=== PATIENT | male | born 1960 | race Caucasian/White ===

== ENCOUNTER → 2019-12-28 08:35 | Outpatient (BNVA) | payer OTHER, SELFPAY | PROVIDERS: PCP Internal Medicine; Visit Provider Hospitalist | DX: Z76.89 Persons encountering health services in other specified circumstances (principal) ==

== ENCOUNTER → 2020-06-17 08:20 | Outpatient (BNVA) | payer OTHER, SELFPAY | PROVIDERS: PCP Internal Medicine; Visit Provider Urology ==

== ENCOUNTER 2020-06-17 09:15 | Outpatient (REF) | payer OTHER, SELFPAY ==
[2020-06-17 11:06] LABS: PSA,Total (Free>4and<10) 2.51 ng/mL (0.00-4.00)
== END 2020-06-17 09:16 | disposition home or self-care (01) ==
LOC: HO.10HDL 09:15
PROVIDERS: Visit Provider Urology
DX: Z12.5 Encounter for screening for malignant neoplasm of prostate (principal); C61 Malignant neoplasm of prostate; N40.1 Benign prostatic hyperplasia with lower urinary tract symptoms; N13.8 Other obstructive and reflux uropathy
CPT/HCPCS: 36415; 84153

== ENCOUNTER 2020-10-17 10:10 | Outpatient (REF) | payer OTHER, SELFPAY ==
[2020-10-17 14:28] LABS: PSA,Total (Free>4and<10) 3.31 ng/mL (0.00-4.00)
== END 2020-10-17 10:11 | disposition home or self-care (01) ==
LOC: HO.10HDL 10:10
PROVIDERS: Visit Provider Urology
DX: Z12.5 Encounter for screening for malignant neoplasm of prostate (principal); C61 Malignant neoplasm of prostate; N13.8 Other obstructive and reflux uropathy; N40.1 Benign prostatic hyperplasia with lower urinary tract symptoms
CPT/HCPCS: 36415; 84153

== ENCOUNTER → 2020-10-28 10:27 | Outpatient (BNVA) | payer OTHER, SELFPAY | PROVIDERS: Visit Provider Urology ==

== ENCOUNTER 2020-11-17 07:18 | Outpatient (REF) | payer OTHER, SELFPAY ==
[2020-11-17 07:42] VITALS: BMI 28.7
[2020-11-17 07:45] VITALS: BP 145/91; PULSE 61; RESP 16; TEMP 36.2; O2SAT 99
[2020-11-17 08:40] VITALS: BP 148/93; PULSE 63; RESP 16; O2SAT 97
--- NOTE | 2020-11-17 08:49 | W.PM.OPN ---
Operative Note Operative Note Date of Service: 11/17/20 Narrative: Preoperative diagnosis: prostate cancer Postoperative diagnosis: prostate cancer Procedure: 1. transrectal ultrasound measurement of prostate 2. transrectal ultrasound-guided pudendal nerve block 3. transrectal ultrasound-guided prostate biopsy 12 core Surgeon: Dr. Lisandro Arcos Anesthetic: Local Indications for procedure: Prostate Cancer Procedure: After informed consent was verified, the patient was brought into the procedure area and lay left-hand side down on the table. Patient identity confirmed. Perioperative antibiotics confirmed. Gel was placed per rectum Ultrasound probe was placed per rectum The prostate was measured in 3 dimensions Total volume equals 35 gm There were no cystic structures and no calcifications noted and the prostate was homogeneous in nature A ultrasound-guided pudendal nerve block was performed using 10 cc of 1% lidocaine. 8 cc was placed at the base and 2 cc of the apex. A 12 core biopsy was performed with 6 cores each side. Two cores were taken at the apex, mid and base. Cores were spaced between lateral and medial. He tolerated the procedure well. Was able to ambulate to bathroom after 5 minutes. Printed instructions regarding antibiotic use and common side effects such as low-grade temperature and bleeding were given.
== END 2020-11-17 07:19 | disposition home or self-care (01) ==
LOC: HO.MS 07:18
PROVIDERS: Visit Provider Urology
PROC: (CPT 55700; principal; 2020-11-17 08:00)
DX: C61 Malignant neoplasm of prostate (principal); R97.20 Elevated prostate specific antigen [PSA]
CPT/HCPCS: 55700; 76942; 88305; 88344

== ENCOUNTER → 2020-11-25 08:09 | Outpatient (BNVA) | payer OTHER, SELFPAY | PROVIDERS: PCP Internal Medicine; Visit Provider Urology ==

== ENCOUNTER → 2021-01-24 08:23 | Outpatient (BNVA) | payer OTHER, SELFPAY | PROVIDERS: PCP Internal Medicine; Visit Provider Hospitalist ==

== ENCOUNTER 2021-03-20 09:27 | Outpatient (REF) | payer OTHER, SELFPAY ==
[2021-03-20 11:17] LABS: Prostate Specific Antigen 3.07 ng/mL (<0.05-4.0)
== END 2021-03-20 09:28 | disposition home or self-care (01) ==
LOC: HO.10HDL 09:27
PROVIDERS: Visit Provider Urology
DX: Z12.5 Encounter for screening for malignant neoplasm of prostate (principal); C61 Malignant neoplasm of prostate
CPT/HCPCS: 36415; 84153

== ENCOUNTER → 2021-03-28 09:21 | Outpatient (BNVA) | payer OTHER, SELFPAY | PROVIDERS: PCP Internal Medicine; Visit Provider Urology ==

== ENCOUNTER 2021-07-19 08:13 | Outpatient (REF) | payer OTHER, SELFPAY ==
[2021-07-19 11:15] LABS: Prostate Specific Antigen 3.91 ng/mL (<0.05-4.0)
== END 2021-07-19 08:14 | disposition home or self-care (01) ==
LOC: HO.10HDL 08:13
PROVIDERS: Visit Provider Urology
DX: N40.1 Benign prostatic hyperplasia with lower urinary tract symptoms (principal); N13.8 Other obstructive and reflux uropathy; Z12.5 Encounter for screening for malignant neoplasm of prostate
CPT/HCPCS: 36415; 84153

== ENCOUNTER 2022-03-28 09:25 | Outpatient (REF) | payer OTHER, SELFPAY ==
[2022-03-28 15:56] LABS: Prostate Specific Antigen 4.28 ng/mL (<0.05-4.0)
== END 2022-03-28 09:26 | disposition home or self-care (01) ==
LOC: HO.10HDL 09:25
PROVIDERS: Visit Provider Urology
DX: C61 Malignant neoplasm of prostate (principal)
CPT/HCPCS: 36415; 84153

== ENCOUNTER → 2022-04-05 09:25 | Outpatient (BNVA) | payer OTHER, SELFPAY | PROVIDERS: PCP Internal Medicine; Visit Provider Urology | DX: Z13.89 Encounter for screening for other disorder (principal) ==

== ENCOUNTER → 2022-05-08 09:38 | Outpatient (BNVA) | payer OTHER, SELFPAY | PROVIDERS: PCP Internal Medicine; Visit Provider Urology | DX: C61 Malignant neoplasm of prostate (principal); E11.69 Type 2 diabetes mellitus with other specified complication; N52.1 Erectile dysfunction due to diseases classified elsewhere; N48.1 Balanitis; Z79.84 Long term (current) use of oral hypoglycemic drugs; Z79.899 Other long term (current) drug therapy | CPT/HCPCS: 52000 ==

== ENCOUNTER 2022-09-18 09:04 | Outpatient (AMB) | payer OTHER, SELFPAY ==
--- NOTE | 2022-09-18 09:04 | MHC.OFFVIS ---
Intake Intake Visit Reasons: 4m/MRI(set) Intake Note: Patient is present for Follow Up MRI Urology Med: Finasteride, Sildenafil, Tadalafil Antibiotic Allergy:None Blood Thinner: None [facility]acy: [facility] Allergies No Known Allergies Allergy (Verified 09/18/22 09:06) Medication List - Last Reconciled 09/18/22 by Lisandro Arcos MD clotrimazole-betamethasone 1-0.05 % 1 appl topical BID 4 weeks empagliflozin (Jardiance) 10 mg PO finasteride 5 mg PO DAILY 90 days flu vacc [id number] 6mos up(PF) mL IM ONCE lisinopril 10 mg PO DAILY lisinopril 20 mg PO DAILY metformin ER 500 mg PO DAILY semaglutide (Rybelsus) 7 mg PO BEDTIME sildenafil 100 mg PO DAILY PRN 30 days tadalafil 10 mg PO DAILY 90 days HPI HPI Comments History of Present Illness Details Andrea PARKER is a very pleasant male. He is a patient of Dr Samano. He is seen for the following urologic conditions. - prostate cancer - erectile dysfunction secondary to diabetes Discussed MRI Lesion in prostate consistent with area of prior positive biopsy Repeat PSA 4 months Will consider repeat biopsy at that point Has had increasing urinary frequency likely secondary to diabetes treatment Balanitis 04/12 betamethasone Erectile dysfunction secondary to diabetes Daily Cialis 10mg Prostate cancer: Low risk November 2018, October 2020 Prostate cancer was diagnosed Dr Arcos 12/06. Diagnosis was reached by needle biopsy, for elevated PSA, PSA at diagnosis 6.4, , size at TRUS 40 cc. PSA 03/10 3.1, 04/12 4.3 08/10 MRI - 20 g prostate, left apex lateral 1.5 cm, PI-RADS 5 Biopsy 12/06 - low-grade low volume grade group 1 Left base lateral , 3+3 = 6 40% Left mid lateral - , 3+3 = 6 20% Left apex lateral - , 3+3 = 6 10% Right mid lateral , 3+3 = 6 5% 4 cores from 12 Biopsy October 2020 low-grade low volume grade group 1 Histologic type: Adenocarcinoma Histologic grade: [place] score:3+3=6 Tumor quantitation:? Number cores positive:5 Total number of cores:12 - left base, left mid % of tissue involved: Approximately 5-10% - - no core greater than 50% Periprostatic fat inv.: Not identified Seminal vesicle inv.: Not identified, Perineural inv.: Present, LVI: Not identified TNM Classification of Malignant Tumours (TNM) T1c. The D'Yanni (NCCN) risk category is Low Risk (PSA< 10, Gl < 7, T1c) - Group 1. Recent labs included 04/09 PSA 3.4 08/07 3.1, 10/08 3.3, 08/09 3.9, 04/12 4.3 PFSH Medical History Prostate cancer Pulmonary nodule Tobacco dependence Family History Other HTN (hypertension) Social History Patient Tobacco Use Status: Current everyday Tobacco user Tobacco use type: Cigarette Cigarette Packs Per Day: 1 Cigarettes Per Day: 20.0 Years Smoked: 15 years Review of Systems Const Denies chills and Denies fever(s) Card Reports no additional complaints and Denies syncope Resp Denies cough GI Denies abdominal pain and Denies heartburn Reports as per HPI and Denies change in libido Neuro Denies syncope Psych Denies change in libido Endo Denies change in libido Physical Exam Const General: cooperative, healthy appearing, comfortable and no acute distress Orientation/consciousness: patient oriented x3 HEENT Face and sinus: Yes normal facial exam Mouth: moist mucous membranes Neck Neck: Yes normal visual inspection, Yes full ROM and Yes trachea midline Chest Chest palpation & inspection: normal inspection of the chest Resp Effort & Inspection: normal respiratory effort, able to speak in complete sentences and no respiratory distress GI Inspection: Yes normal to inspection Back/Spine/Pelvis Cervical Spine: normal cervical lordosis Thoracic/Lumbar Spine: thoracic and lumbar spine normal to inspection Skin General skin exam: no rashes or lesions noted Neuro General: patient oriented x3, gait normal, tone normal and moves all extremities Extrem General: Yes normal to inspection and Yes capillary refill normal Assessment & Plan Assessment & Plan (1) Erectile dysfunction associated with type 2 diabetes mellitus: Code(s): E11.69 - Type 2 diabetes mellitus with other specified complication; N52.1 - Erectile dysfunction due to diseases classified elsewhere (2) Prostate cancer: Comment: Low-grade low volume last biopsy 2020 Code(s): C61 - Malignant neoplasm of prostate Plan Four month follow-up Orders: Orders Prostate Specific Antigen 4 Months C61 - Malignant neoplasm of prostate Patient Instructions: Imaging studies, laboratory and physical exam results were discussed and reviewed in detail. No major barriers to patient understanding were identified. An opportunity to ask questions regarding the treatment plan was provided. All questions were answered. The patient expressed understanding and agreement with the above treatment plan. The patient is aware they should contact our office by phone for worsening of their current condition or the appearance of new urologic symptoms. Compliance is encouraged with any medications and followup testing that is ordered. It is a privilege to participate in the urologic care of your patient. If you have any questions or concerns regarding treatment for the above conditions, or other urologic issues, please do not hesitate to contact me. The office telephone contact is [phone]. This note is constructed using voice recognition software. While every effort has been made to ensure accuracy milling/polishing operator errors may have been included. Yours sincerely, Dr Lisandro Arcos MD, [facility] - Urology Providers of Expert, Compassionate Care for the Genitourinary System Quality Reporting (2020) Adult ([facility] 138/04/11/68) Smoking risk assessment performed?: Yes Patient Tobacco Use Status: Current everyday Tobacco user Coding Level of Care Code Est Pt Level 3 (67223) Diagnoses Erectile dysfunction associated with type 2 diabetes mellitus E11.69; N52.1 Prostate cancer C61
== END 2022-09-18 09:27 | disposition home or self-care (01) ==
PROVIDERS: Visit Provider Urology
DX: E11.69 Type 2 diabetes mellitus with other specified complication (principal); N52.1 Erectile dysfunction due to diseases classified elsewhere; C61 Malignant neoplasm of prostate
CPT/HCPCS: 99213

== ENCOUNTER → 2022-09-18 09:04 | Outpatient (BNVA) | payer OTHER, SELFPAY | PROVIDERS: Visit Provider Urology ==

== ENCOUNTER 2023-01-28 09:17 | Outpatient (REF) | payer OTHER, SELFPAY ==
[2023-01-28 11:24] LABS: Prostate Specific Antigen 5.66 ng/mL (<0.05-4.0)
== END 2023-01-28 09:18 | disposition home or self-care (01) ==
LOC: HO.10HDL 09:17
PROVIDERS: Visit Provider Urology
DX: Z12.5 Encounter for screening for malignant neoplasm of prostate (principal); C61 Malignant neoplasm of prostate
CPT/HCPCS: 36415; 84153

== ENCOUNTER 2023-02-05 09:09 | Outpatient (AMB) | payer OTHER, SELFPAY ==
--- NOTE | 2023-02-05 09:13 | MHC.OFFVIS ---
Intake Intake Visit Reasons: 4m/PSA(set) Intake Note: Patient is Present for Follow Up PSA Urology Medication: Finasteride, Sildenafil, Tadalafil Antibiotic Allergies: None Blood Thinners: None Allergies No Known Allergies Allergy (Verified 02/05/23 09:16) HPI HPI Comments History of Present Illness Details Andrea PARKER is a very pleasant male. He is a patient of Dr Samano. He is seen for the following urologic conditions. - prostate cancer - erectile dysfunction secondary to diabetes Discussed MRI Lesion in prostate consistent with area of prior positive biopsy PSA has risen Targeted biopsy planned Balanitis 04/12 betamethasone Erectile dysfunction secondary to diabetes Daily Cialis 10mg Prostate cancer: Low risk November 2018, October 2020 Prostate cancer was diagnosed Dr Arcos 12/06. Diagnosis was reached by needle biopsy, for elevated PSA, PSA at diagnosis 6.4, , size at TRUS 40 cc. PSA 03/10 3.1, 04/12 4.3, 02/09 5.6 08/10 MRI - 20 g prostate, left apex lateral 1.5 cm, PI-RADS 5 Biopsy 12/06 - low-grade low volume grade group 1 Left base lateral , 3+3 = 6 40% Left mid lateral - , 3+3 = 6 20% Left apex lateral - , 3+3 = 6 10% Right mid lateral , 3+3 = 6 5% 4 cores from 12 Biopsy October 2020 low-grade low volume grade group 1 Histologic type: Adenocarcinoma Histologic grade: [place] score:3+3=6 Tumor quantitation:? Number cores positive:5 Total number of cores:12 - left base, left mid % of tissue involved: Approximately 5-10% - - no core greater than 50% Periprostatic fat inv.: Not identified Seminal vesicle inv.: Not identified, Perineural inv.: Present, LVI: Not identified TNM Classification of Malignant Tumours (TNM) T1c. The D'Yanni (NCCN) risk category is Low Risk (PSA< 10, Gl < 7, T1c) - Group 1. Recent labs included 04/09 PSA 3.4 08/07 3.1, 10/08 3.3, 08/09 3.9, 04/12 4.3 [facility] Medical History Prostate cancer Tobacco dependence Pulmonary nodule Family History Other HTN (hypertension) Social History Patient Tobacco Use Status: Current everyday Tobacco user Tobacco use type: Cigarette Cigarette Packs Per Day: 1 Cigarettes Per Day: 20.0 Years Smoked: 15 years Review of Systems Const Denies chills and Denies fever(s) Card Reports no additional complaints and Denies syncope Resp Denies cough GI Denies abdominal pain and Denies heartburn Reports as per HPI and Denies change in libido Neuro Denies syncope Psych Denies change in libido Endo Denies change in libido Physical Exam Const General: cooperative, healthy appearing, comfortable and no acute distress Orientation/consciousness: patient oriented x3 HEENT Face and sinus: Yes normal facial exam Mouth: moist mucous membranes Neck Neck: Yes normal visual inspection, Yes full ROM and Yes trachea midline Chest Chest palpation & inspection: normal inspection of the chest Resp Effort & Inspection: normal respiratory effort, able to speak in complete sentences and no respiratory distress GI Inspection: Yes normal to inspection Back/Spine/Pelvis Cervical Spine: normal cervical lordosis Thoracic/Lumbar Spine: thoracic and lumbar spine normal to inspection Skin General skin exam: no rashes or lesions noted Neuro General: patient oriented x3, gait normal, tone normal and moves all extremities Extrem General: Yes normal to inspection and Yes capillary refill normal Assessment & Plan Assessment & Plan (1) Erectile dysfunction associated with type 2 diabetes mellitus: Code(s): E11.69 - Type 2 diabetes mellitus with other specified complication; N52.1 - Erectile dysfunction due to diseases classified elsewhere (2) Prostate cancer: Comment: Low-grade low volume last biopsy 2020 Code(s): C61 - Malignant neoplasm of prostate Plan Risks, benefits and alternatives to therapy were discussed. These include but are not limited to infection, bleeding, damage to local organs and tissues, need for further interventions. Anesthetic risks regarding cardiac arrhythmia, blood clots, and potential mortality were discussed. The patient understands the typical recovery time and the outpatient nature of the procedure. After consideration of these risks the patient gives full informed consent and they wish to move ahead with the procedure. Targeted MRI ultrasound biopsy Patient Instructions: Imaging studies, laboratory and physical exam results were discussed and reviewed in detail. No major barriers to patient understanding were identified. An opportunity to ask questions regarding the treatment plan was provided. All questions were answered. The patient expressed understanding and agreement with the above treatment plan. The patient is aware they should contact our office by phone for worsening of their current condition or the appearance of new urologic symptoms. Compliance is encouraged with any medications and followup testing that is ordered. It is a privilege to participate in the urologic care of your patient. If you have any questions or concerns regarding treatment for the above conditions, or other urologic issues, please do not hesitate to contact me. The office telephone contact is [phone]. This note is constructed using voice recognition software. While every effort has been made to ensure accuracy work distributor errors may have been included. Yours sincerely, Dr Lisandro Arcos MD, [facility] - Urology Providers of Expert, Compassionate Care for the Genitourinary System Quality Reporting (2019) Adult ([facility] 138/04/11/68) Smoking risk assessment performed?: Yes Patient Tobacco Use Status: Current everyday Tobacco user Coding Level of Care Code Est Pt Level 4 (56519) Diagnoses Erectile dysfunction associated with type 2 diabetes mellitus E11.69; N52.1 Prostate cancer C61
== END 2023-02-05 09:34 | disposition home or self-care (01) ==
PROVIDERS: PCP Internal Medicine; Visit Provider Urology
DX: C61 Malignant neoplasm of prostate (principal); E11.69 Type 2 diabetes mellitus with other specified complication; N52.1 Erectile dysfunction due to diseases classified elsewhere
CPT/HCPCS: 99214

== ENCOUNTER → 2023-02-05 09:09 | Outpatient (BNVA) | payer OTHER, SELFPAY | PROVIDERS: PCP Internal Medicine; Visit Provider Urology ==

== ENCOUNTER 2023-05-01 12:52 | Outpatient (AMB) | payer BC, SELFPAY ==
--- NOTE | 2023-05-01 12:52 | A.OFFVIS_ITS ---
Intake Intake Visit Reasons: H&P Targeted bx confirmed Intake Note: Patient presents today for a telehealth follow-up on H&P biopsy Meds- Finasteride, Sildenafil, Tadalafil Allergies to Antibiotic- No Known Allergies Blood Thinner- None Statement Request Clerk Required: No Allergies No Known Allergies Allergy (Verified 05/01/23 12:55) HPI HPI Comments History of Present Illness Details Andrea PARKER is a very pleasant male. He is a patient of Dr Samano. He is seen for the following urologic conditions. - prostate cancer - erectile dysfunction secondary to diab etes Telemedicine Evaluation 15 min Consultation [employer] Johanne Video Targeted biopsy planned Biopsy process discussed Balanishayy 04/12 betamethasone Erectile dysfunction secondary to diabetes Daily Cialis 10mg Prostate cancer: Low risk November 2018, October 2020 Prostate cancer was diagnosed Dr Arcos 12/06. Diagnosis was reached by needle biopsy, for elevated PSA, PSA at diagnosis 6.4, , size at TRUS 40 cc. PSA 03/10 3.1, 04/12 4.3, 02/09 5.6 08/10 MRI - 20 g prostate, left apex late ral 1.5 cm, PI-RADS 5 Biopsy 12/06 - low-grade low volume grade group 1 - Left base lateral , 3+3 = 6 40% - Left mid lateral - , 3+3 = 6 20% - Left apex lateral - , 3+3 = 6 10% - Right mid lateral , 3+3 = 6 5% - 4 cores from 12 - Biopsy October 2020 low-grade low volume grade group 1 Histologic type: Adenocarcinoma Histologic grade: [place] score:3+3=6 Tumor quantitation:? Number cores positive:5 Total number of cores:12 - left base, left mid % of tissue involved: Approximately 5-10% - - no core greater than 50% Periprostatic fat inv.: Not identified Seminal vesicle inv.: Not identified, Perineural inv.: Present, LVI: Not identified TNM Classification of Malignant Tumours (TNM) T1c. The D'Yanni (NCCN) risk category is Low Risk (PSA< 10, Gl < 7, T1c) - Group 1. Recent labs included 04/09 PSA 3.4 08/07 3.1, 10/08 3.3, 08/09 3.9, 04/12 4.3 [facility] Medical History Prostate cancer Tobacco dependence Pulmonary nodule Family History Other HTN (hypertension) Social History Patient Tobacco Use Status: Current everyday Tobacco user Tobacco use type: Cigarette Cigarette Packs Per Day: 0.5 Cigarettes Per Day: 10.0 Years Smoked: 20 Review of Systems Const All systems reviewed & are unremarkable except as noted in HPI and below Reports no additional complaints Resp Reports no additional complaints GI Reports no additional complaints Reports as per HPI Musc Reports no additional complaints Physical Exam Telemedicine evaluation Appropriate responses Regular breathing rate and rhythm HEENT Head: Yes normal to inspection Ears: hearing grossly normal bilaterally Eyes General: appearance normal, both eyes and all related structures Neck Neck: Yes normal visual inspection Chest Chest palpation & inspection: normal inspection of the chest Resp Effort & Inspection: normal respiratory effort and able to speak in complete sentences Assessment & Plan Assessment & Plan (1) Prostate cancer: Comment: Low-grade low volume last biopsy 2020 Code(s): C61 - Malignant neoplasm of prostate Plan Risks, benefits and alternatives to therapy were discussed. These include but are not limited to infection, bleeding, damage to local organs and tissues, need for further interventions. Anesthetic risks regarding cardiac arrhythmia, blood clots, and potential mortality were discussed. The patient understands the typical recovery time and the outpatient nature of the procedure. After consideration of these risks the patient gives full informed consent and they wish to move ahead with the procedure. Plan to biopsy Patient Instructions: Imaging studies, laboratory and physical exam results were discussed and reviewed in detail. No major barriers to patient understanding were identified. An opportunity to ask questions regarding the treatment plan was provided. All questions were answered. The patient expressed understanding and agreement with the above treatment plan. The patient is aware they should contact our office by phone for worsening of their current condition or the appearance of new urologic symptoms. Compliance is encouraged with any medications and followup testing that is ordered. It is a privilege to participate in the urologic care of your patient. If you have any questions or concerns regarding treatment for the above conditions, or other urologic issues, please do not hesitate to contact me. The office telephone contact is [phone]. This note is constructed using voice recognition software. While every effort has been made to ensure accuracy learning and development coordinator errors may have been included. Yours sincerely, Dr Lisandro Arcos MD, [facility] - Urology Providers of Expert, Compassionate Care for the Genitourinary System Quality Reporting (2020) Adult ([facility] 138/04/11/68) Smoking risk assessment performed?: Yes Patient Tobacco Use Status: Current everyday Tobacco user Telehealth Telehealth Location of provider rendering services: practice address Location of patient: address on file Patient Identification confirmed using: Name, : Yes Telehealth method: video Patient verbally consented to treatment: Yes Patient verbally consented to billing insurance company: Yes Patient informed of any privacy concerns related to visit: Yes Coding Level of Care Code Tele Est Pt Level 3 (42743) Diagnoses Prostate cancer C61
== END 2023-05-01 15:25 | disposition home or self-care (01) ==
LOC: HO.HUSH 12:52
PROVIDERS: PCP Internal Medicine; Visit Provider Urology
DX: C61 Malignant neoplasm of prostate (principal)
CPT/HCPCS: 99213

== ENCOUNTER → 2023-05-01 12:52 | Outpatient (BNVA) | payer BC, SELFPAY | PROVIDERS: PCP Internal Medicine; Visit Provider Urology ==

== ENCOUNTER 2023-05-06 05:37 | Day surgery (SDC) | payer BC, SELFPAY ==
[2023-05-06] VITALS (7 sets, daily range): BP systolic 117–146; BP diastolic 62–82; PULSE 60–72; RESP 14–18; TEMP 36.1–36.2; O2SAT 94–98; BMI 29.1
[2023-05-06 06:15] LABS: Glucose, Whole Blood 202 mg/dL (60-115)
[2023-05-06] MEDS: Lactated Ringers 1,000 ML 50 ML IVCONT (06:52)
--- NOTE | 2023-05-06 07:23 | P.CONAN_ITS ---
HPI - Anesthesia Eval Consult details Narrative: prostate biopsy [facility] Active Problems Active Problems: All Active Problems (Updated 04/05/22 @ 10:50 by Lisandro Arcos MD) Luciano henriquez (Acute) Erectile dysfunction associated with type 2 diabetes mellitus (Acute) Prostate cancer (Acute) Tobacco dependence (Acute) Pulmonary nodule (Acute) Past Medical History Medical History Prostate cancer Tobacco dependence Pulmonary nodule Family History Family History Other HTN (hypertension) Family history of problems with anesthesia: No Surgical History History of Problems with Anesthesia: No Social History Social History Patient Tobacco Use Status: Current everyday Tobacco user Tobacco use type: Cigarette Cigarette Packs Per Day: 0.5 Cigarettes Per Day: 10.0 Years Smoked: 20 Date Education Initiated: 05/06/23 Use of substances other than those prescribed or required for medical reasons: No Are you DNR?: No Advance Directives: No Advance Directives Information Provided: Yes Meds Allergies Allergy/AdvReac Type Severity Reaction Status Date / Time No Known Allergies Allergy Verified 05/01/23 12:55 Active Medications: Current Medications Lactated Ringer's (Lr) 1,000 mls @ 50 mls/hr IVCONT .Q20H LENNOX Last Admin: 05/06/23 06:52 Dose: 50 mls/hr Home Medications Medication Instructions Recorded Confirmed Last Taken Type lisinopril 10 mg tablet 20 mg PO DAILY 12/28/19 05/06/23 Unknown History metformin 500 mg tablet,extended 1,000 mg PO BID 12/28/19 05/06/23 Unknown History release 24 hr lisinopril 20 mg tablet 20 mg PO DAILY 07/26/21 05/06/23 Unknown History empagliflozin 10 mg tablet 25 mg PO DAILY 04/05/22 05/06/23 Unknown History (Jardiance) Exam Height,Weight and Vital Signs: Height 5 ft 6 in Weight 81.737 kg Last Vital Signs Temp 908.1 F H 05/06/23 06:30 Pulse 72 05/06/23 06:30 Resp 18 05/06/23 06:30 BP 146/82 H 05/06/23 06:30 Pulse Ox 98 05/06/23 06:30 O2 Del Method Nasal Cannula 05/06/23 06:30 Pertinent Lab Results Pertinent Lab Results: Laboratory Tests 05/06/23 06:11 POC Glucose 202 H Airway Mallampati Class: II TM Dist: >3cm Neck ROM: Full Loose/Missing/Broken Teeth: No Heart: ok Lungs: ok Assessment and Plan Assessment Anesthesia Assessment: Anesthesia Plan Discussed and Chart Reviewed Final Anesthetic Review Family History of Problems with Anesthesia: No History of Problems with Anesthesia: No NPO: Yes ASA Class: II Final Preanesthetic Review: No Changes in Pt Med Stat, Meds/Allgs Chart Reviewed, Consent Obtained/Reviewed and Anes Risks/Benef Reviewed Patient Risk: Low Procedure Risk: Low Anesthetic Plan Anesthetic Plan: GA and Agree w/ Assess. and Plan Disposition: Standard PACU
--- NOTE | 2023-05-06 07:29 | MHC.SHP ---
Pre-Procedural Eval Section A - 24 Hr Update-Section A only Date of Service: 05/06/23 The patient is an INPATIENT: No Changes since office visit: No Cold of Flu in the past 2 weeks, No New Medical Problems, No Changes in Medication and No Patient answered all questions The patient has been examined within 24 hours of the surgical procedure. The History & Physical has been completed within 30 days and I have reviewed it.: Yes Section B - Complete if H&P > 30 days Chief Complaint: Malignant neoplasm of prostate Details of Present Illness: Ultrasound MRI targeted biopsy Relevant Family History (Specify if Yes): No Relevant Social History: None Present Medications: see Short Stay Collaborative assessment Medical History: No relevant PMH History of Previous Operations: Relevant previous surgery/procedure and date(s) Allergies: Allergies Allergy/AdvReac Type Severity Reaction Status Date / Time No Known Allergies Allergy Verified 05/01/23 12:55 Review of Systems Sugical H&P ROS: Negative: Constitution, Cardiovascular, Respiratory, Neurological, Psychiatric, Hem-Onc, Allergic/Immunologic, Gastrointestinal, Genitourinary, Musculoskeletal, Integumentary, Endocrine and Eyes/Ears/Nose/Throat Exam Surgical H&P Exam: Normal: HEENT, Normal: Heart, Normal: Lungs, Normal: Extremities, Normal: Abdomen, Normal: Skin and Normal: Neurological Plan Diagnosis/Plan: Unchanged (Ultrasound MRI targeted prostate biopsy) I have reviewed the history and physical and performed a pertinent physical examination on my patient. No changes have occurred unless specified. Time Spent With Patient Time: Total time managing care of this patient today ____ minutes.
--- NOTE | 2023-05-06 08:19 | W.PM.OPN ---
Operative Note Operative Note Date of Service: 05/06/23 Narrative: Preoperative diagnosis: Prostate Cancer Postoperative diagnosis: Prostate Cancer Procedure: 1. transrectal ultrasound-guided pudendal nerve block 2. MRI-US fusion image registration performed 3. transperineal ultrasound-guided prostate biopsy 18 core including targets Surgeon: Dr. Lisandro Arcos Anesthetic: Sedation plus local Indications for procedure: Prostate Cancer Procedure: After informed consent was verified, the patient was brought into the procedure area. Patient identity confirmed. Perioperative antibiotics confirmed. Safety pause time out performed. Anesthesia performed per protocol. Scrotum taped out of operative area. Iodine prep used. Perineal injection of local anesthetic. Digital guided prostate pudendal nerve block performed with 10 cc of 1% lidocaine. 5cc each side. Combination 10cc iodine with 50cc gel was mixed and placed in the rectum. Ultrasound probe was placed per rectum. Ultrasound probe stabilized on a prostate stepper with attached grid. [employer] software and hardware platform used for US image acquisition, US 3D model creation and MRI-US fusion image overlay. Ultrasound placement was made with external grid calibration for height and prostate diameter in both the transverse and longitudinal planes. Grid A-C covering right prostate and c-F covering left prostate. Numbers 1.0-2.5 covering posterior prostate and 2.5-4.0 covering anterior prostate. Once grid calibration was confirmed prostate ultrasound data acquisition was performed in the transverse fashion. The US images were registered to create model boundaries. A three dimensional ultrasound model was created using [employer] software. The model was reviewed against acquired US images. The planned needle targeting, based on prior acquisition of MRI imaging, was overlaid on the ultrasound images and targets confirmed through ultrasound review. Adjustments were then made between real time and projected model targeting locations. Based on pre-planning evaluation 2 targets had been identified. These included 2 targets of the PI-RADS 3/4 at left prostate apex identified lesion/s. He tolerated the procedure well. Was transferred to stable condition in the PACU. Printed instructions regarding antibiotic use and common side effects such as low-grade temperature, potential infection and bleeding were given Pathology: 18 prostate biopsy CPT 66232 Modifier 22 for complexity of procedure execution (Perineal prostate biopsy) CPT 64913 US/MRI target fusion and manipulation in realtime
== END 2023-05-06 09:33 | disposition home or self-care (01) ==
PROVIDERS: PCP Internal Medicine; Visit Provider Urology
PROC: (CPT 55700; principal; 2023-05-06 07:30)
DX: C61 Malignant neoplasm of prostate (principal); E11.9 Type 2 diabetes mellitus without complications; N52.1 Erectile dysfunction due to diseases classified elsewhere; R91.1 Solitary pulmonary nodule; Z79.84 Long term (current) use of oral hypoglycemic drugs; Z79.899 Other long term (current) drug therapy; F17.210 Nicotine dependence, cigarettes, uncomplicated
CPT/HCPCS: 55706; 82947; 88305; C2618; J1956; J2704; J3010

== ENCOUNTER → 2023-05-06 05:37 | Outpatient (BNV) | payer BC, SELFPAY | PROVIDERS: PCP Internal Medicine; Visit Provider Urology | DX: C61 Malignant neoplasm of prostate (principal) | CPT/HCPCS: 55700; 76942 ==

== ENCOUNTER 2023-06-18 15:24 | Outpatient (AMB) | payer BC, SELFPAY ==
--- NOTE | 2023-06-18 15:25 | A.OFFVIS_ITS ---
Intake Visit Reasons: Prostate bx results Allergies No Known Allergies Allergy (Verified 05/01/23 12:55) HPI Comments Details: Andrea PARKER is a very pleasant male. He is a patient of Dr Samano. He is seen for the following urologic conditions. - prostate cancer - erectile dysfunction secondary to diabetes Telemedicine Evaluation 15 min Consultation [employer] Johanne Video Targeted biopsy result discussed Three small cause Check polaris Four month follow-up PSA Balanitis 04/12 betamethasone Erectile dysfunction secondary to diabetes Daily Cialis 10mg Prostate cancer: Low risk November 2018, October 2020, April 2023 grade group 2 Prostate cancer was diagnosed Dr Arcos 12/06. Diagnosis was reached by needle biopsy, for elevated PSA, PSA at diagnosis 6.4, , size at TRUS 40 cc. PT1c PSA 03/10 3.1, 04/12 4.3, 02/09 5.6 05/11 low-grade, low volume Histologic grade: Shayla score: 3+4=7 (E 2.5) 3+3=6 (d 3.0, d 2.5) % of pattern 4: 10% of the tumor % of pattern 5: 0% Grade group: 2 and 1 Tumor quantitation: Number cores positive: 3 Total number of cores: 16 % of tissue involved: 10% of all tissue examined Periprostatic fat inv.: Not identified Seminal vesicle inv.: Not identified Perineural inv.: Present 08/10 MRI - 20 g prostate, left apex lateral 1.5 cm, PI-RADS 5 Biopsy 12/06 - low-grade low volume grade group 1 - Left base lateral , 3+3 = 6 40% - Left mid lateral - , 3+3 = 6 20% - Left apex lateral - , 3+3 = 6 10% - Right mid lateral , 3+3 = 6 5% - 4 cores from 12 - Biopsy October 2020 low-grade low volume grade group 1 Histologic type: Adenocarcinoma Histologic grade: Shayla score:3+3=6 Tumor quantitation:? Number cores positive:5 Total number of cores:12 - left base, left mid % of tissue involved: Approximately 5-10% - - no core greater than 50% Periprostatic fat inv.: Not identified Seminal vesicle inv.: Not identified, Perineural inv.: Present, LVI: Not identified TNM Classification of Malignant Tumours (TNM) T1c. The D'Yanni (NCCN) risk category is Low Risk (PSA< 10, Gl < 7, T1c) - Group 1. Recent labs included 04/09 PSA 3.4 08/07 3.1, 10/08 3.3, 08/09 3.9, 04/12 4.3 PFSH Medical History Prostate cancer Tobacco dependence Pulmonary nodule Family History Other HTN (hypertension) Social History Patient Tobacco Use Status: Current everyday Tobacco user Tobacco use type: Cigarette Cigarette Packs Per Day: 0.5 Cigarettes Per Day: 10.0 Years Smoked: 20 Review of Systems Const All systems reviewed & are unremarkable except as noted in HPI and below Reports no additional complaints Resp Reports no additional complaints GI Reports no additional complaints Reports as per HPI Musc Reports no additional complaints Physical Exam Telemedicine evaluation Appropriate responses Regular breathing rate and rhythm HEENT Head: Yes normal to inspection Ears: hearing grossly normal bilaterally Eyes General: appearance normal, both eyes and all related structures Neck Neck: Yes normal visual inspection Chest Chest palpation & inspection: normal inspection of the chest Resp Effort & Inspection: normal respiratory effort and able to speak in complete sentences Quality Reporting (2019) Adult ([facility] 138/04/11/68) Smoking risk assessment performed?: Yes Patient Tobacco Use Status: Current everyday Tobacco user Telehealth Telehealth Telehealth Platform: [employer] Location of provider rendering services: practice address Location of patient: address on file Patient Identification confirmed using: Name, : Yes Telehealth method: video Patient verbally consented to treatment: Yes Patient verbally consented to billing insurance company: Yes Patient informed of any privacy concerns related to visit: Yes Minutes spent on Phone/Video with Pt.: 15 Assessment & Plan Assessment & Plan (1) Erectile dysfunction associated with type 2 diabetes mellitus: Code(s): E11.69 - Type 2 diabetes mellitus with other specified complication; N52.1 - Erectile dysfunction due to diseases classified elsewhere Category: Medical (2) Prostate cancer: Comment: Low-grade low volume last biopsy 2020 Code(s): C61 - Malignant neoplasm of prostate Category: Medical Plan Continue finasteride 4 month follow-up Siving Egil Kv[place]berg Orders: Orders PSA,Total (Free>4and<10) 4 Months C61 - Malignant neoplasm of prostate Patient Instructions: Imaging studies, laboratory and physical exam results were discussed and reviewed in detail. No major barriers to patient understanding were identified. An opportunity to ask questions regarding the treatment plan was provided. All questions were answered. The patient expressed understanding and agreement with the above treatment plan. The patient is aware they should contact our office by phone for worsening of their current condition or the appearance of new urologic symptoms. Compliance is encouraged with any medications and followup testing that is ordered. It is a privilege to participate in the urologic care of your patient. If you have any questions or concerns regarding treatment for the above conditions, or other urologic issues, please do not hesitate to contact me. The office telephone contact is [phone]. This note is constructed using voice recognition software. While every effort has been made to ensure accuracy director of residential services errors may have been included. Yours sincerely, Dr Lisandro Arcos MD, [facility] - Urology Providers of Expert, Compassionate Care for the Genitourinary System Coding Level of Care Code Tele Est Pt Level 4 (21410) Diagnoses Erectile dysfunction associated with type 2 diabetes mellitus E11.69; N52.1 Prostate cancer C61
== END 2023-06-18 15:59 | disposition home or self-care (01) ==
LOC: HO.HUSH 15:24
PROVIDERS: PCP Internal Medicine; Visit Provider Urology
DX: E11.69 Type 2 diabetes mellitus with other specified complication (principal); N52.1 Erectile dysfunction due to diseases classified elsewhere; C61 Malignant neoplasm of prostate
CPT/HCPCS: 99213

== ENCOUNTER → 2023-06-18 15:24 | Outpatient (BNVA) | payer BC, SELFPAY | PROVIDERS: PCP Internal Medicine; Visit Provider Urology ==

== ENCOUNTER 2023-10-14 08:23 | Outpatient (REF) | payer BC, SELFPAY ==
[2023-10-14 11:35] LABS: PSA,Total (Free>4and<10) 7.01 ng/mL (0.00-4.00)
[2023-10-16 10:49] LABS: Free Prostate Spec Ag <0.1 ng/mL; Percent Free Prostate Spec Ag UNABLE TO CALCULATE % (calc) (>25); Prostate Specific Ag Total <0.1 ng/mL (< OR = 4.0)
== END 2023-10-14 08:24 | disposition home or self-care (01) ==
LOC: HO.10HDL 08:23
PROVIDERS: Visit Provider Urology
DX: C61 Malignant neoplasm of prostate (principal); Z12.5 Encounter for screening for malignant neoplasm of prostate
CPT/HCPCS: 36415; 84153; 84154

== ENCOUNTER 2023-10-24 13:48 | Outpatient (AMB) | payer BC, SELFPAY ==
--- NOTE | 2023-10-24 13:54 | A.OFFVIS_ITS ---
Intake Visit Reasons: 4M Follow Up- PSA(set) Intake Note: Patient is Present for Telephone Follow Up For PSA Urology Med: Finasteride, Tadalafil, Sildenafil Antibiotic Allergy:None Blood Thinner:None Patient is on Jardiance PSA completed on 10/14/23 Total PSA- 7.01 Last PSA 5.66 2022 Ecg Technician Required: No Accompanied by: Self / Same As Patient Allergies No Known Allergies Allergy (Verified 10/24/23 13:55) PFSH Medical History Prostate cancer Tobacco dependence Pulmonary nodule Family History Other HTN (hypertension) Social History Patient Tobacco Use Status: Current everyday Tobacco user Tobacco use type: Cigarette Cigarette Packs Per Day: 0.5 Cigarettes Per Day: 10.0 Years Smoked: 20 Quality Reporting (2019) Adult ([facility] 138/04/11/68) Smoking risk assessment performed?: Yes Patient Tobacco Use Status: Current everyday Tobacco user Telehealth Telehealth Telehealth Platform: Telephone Location of provider rendering services: practice address Location of patient: address on file Patient Identification confirmed using: Name, : Yes Telehealth method: voice only Patient verbally consented to treatment: Yes Patient verbally consented to billing insurance company: Yes Patient informed of any privacy concerns related to visit: Yes Coding
--- NOTE | 2023-10-24 14:29 | MHC.OFFVIS ---
Intake Visit Reasons: 4M Follow Up- PSA(set) Allergies No Known Allergies Allergy (Verified 10/24/23 13:55) Medication List - Last Reconciled 10/24/23 by Lisandro Arcos MD clotrimazole-betamethasone 1-0.05 % 1 appl topical BID 4 weeks empagliflozin (Jardiance) 25 mg PO DAILY finasteride 5 mg PO DAILY 90 days lisinopril 20 mg PO DAILY lisinopril 20 mg PO DAILY metformin ER 1,000 mg PO BID sildenafil 100 mg PO DAILY PRN 30 days tadalafil 10 mg PO DAILY 90 days HPI Comments Details: Andrea PARKER is a very pleasant male. He is a patient of Dr Samano. He is seen for the following urologic conditions. - prostate cancer - erectile dysfunction secondary to diabetes Telemedicine Evaluation 15 min Consultation [employer] Johanne Video attempted PSA has continued to rise despite finasteride treatment Prolaris reviewed - molecular score 4.7 - risk location upper end of favorable intermediate Threshold percentage 4.3 versus threshold 3.2 Recommendation intervention - robotic prostatectomy [facility] betamethasone Erectile dysfunction secondary to diabetes Daily Cialis 10mg Prostate cancer: Low risk November 2018, October 2020, April 2023 grade group 2 Prostate cancer was diagnosed Dr Arcos 12/06. Diagnosis was reached by needle biopsy, for elevated PSA, PSA at diagnosis 6.4, , size at TRUS 40 cc. PT1c PSA 03/10 3.1, 04/12 4.3, 02/09 5.6, 10/11 7.0 finasteride 05/11 low-grade, low volume Histologic grade: Shayla score: 3+4=7 (E 2.5) 3+3=6 (d 3.0, d 2.5) % of pattern 4: 10% of the tumor Tumor quantitation: Number cores positive: 3 Total number of cores: 16 % of tissue involved: 10% of all tissue examined Periprostatic fat inv.: Not identified Seminal vesicle inv.: Not identified Perineural inv.: Present 08/10 MRI - 20 g prostate, left apex lateral 1.5 cm, PI-RADS 5 Biopsy 12/06 - low-grade low volume grade group 1 - Left base lateral , 3+3 = 6 40% - Left mid lateral - , 3+3 = 6 20% - Left apex lateral - , 3+3 = 6 10% - Right mid lateral , 3+3 = 6 5% - 4 cores from 12 - Biopsy October 2020 low-grade low volume grade group 1 Histologic type: Adenocarcinoma Histologic grade: Shayla score:3+3=6 Tumor quantitation:? Number cores positive:5 Total number of cores:12 - left base, left mid % of tissue involved: Approximately 5-10% - - no core greater than 50% Periprostatic fat inv.: Not identified Seminal vesicle inv.: Not identified, Perineural inv.: Present, LVI: Not identified TNM Classification of Malignant Tumours (TNM) T1c. The D'Yanni (NCCN) risk category is Low Risk (PSA< 10, Gl < 7, T1c) - Group 1. Recent labs included 04/09 PSA 3.4 08/07 3.1, 10/08 3.3, 08/09 3.9, 04/12 4.3 PFSH Medical History Prostate cancer Tobacco dependence Pulmonary nodule Family History Other HTN (hypertension) Social History Patient Tobacco Use Status: Current everyday Tobacco user Tobacco use type: Cigarette Cigarette Packs Per Day: 0.5 Cigarettes Per Day: 10.0 Years Smoked: 20 Review of Systems Const All systems reviewed & are unremarkable except as noted in HPI and below Reports no additional complaints Resp Reports no additional complaints GI Reports no additional complaints Reports as per HPI Musc Reports no additional complaints Physical Exam Telemedicine evaluation Appropriate responses Regular breathing rate and rhythm HEENT Head: Yes normal to inspection Ears: hearing grossly normal bilaterally Eyes General: appearance normal, both eyes and all related structures Neck Neck: Yes normal visual inspection Chest Chest palpation & inspection: normal inspection of the chest Resp Effort & Inspection: normal respiratory effort and able to speak in complete sentences Quality Reporting (2019) Adult ([facility] 138/2//) Smoking risk assessment performed?: Yes Patient Tobacco Use Status: Current everyday Tobacco user Telehealth Telehealth Location of provider rendering services: practice address Location of patient: address on file Patient Identification confirmed using: Name, : Yes Telehealth method: voice only Patient verbally consented to treatment: Yes Patient verbally consented to billing insurance company: Yes Patient informed of any privacy concerns related to visit: Yes Assessment & Plan Assessment & Plan (1) Erectile dysfunction associated with type 2 diabetes mellitus: Code(s): E11.69 - Type 2 diabetes mellitus with other specified complication; N52.1 - Erectile dysfunction due to diseases classified elsewhere Category: Medical (2) Prostate cancer: Comment: Low-grade low volume last biopsy 2020 Code(s): C61 - Malignant neoplasm of prostate Category: Medical Plan Referral for robotic prostatectomy assessment Orders: Referrals Urology Referral C61 - Malignant neoplasm of prostate Patient Instructions: Imaging studies, laboratory and physical exam results were discussed and reviewed in detail. No major barriers to patient understanding were identified. An opportunity to ask questions regarding the treatment plan was provided. All questions were answered. The patient expressed understanding and agreement with the above treatment plan. The patient is aware they should contact our office by phone for worsening of their current condition or the appearance of new urologic symptoms. Compliance is encouraged with any medications and followup testing that is ordered. It is a privilege to participate in the urologic care of your patient. If you have any questions or concerns regarding treatment for the above conditions, or other urologic issues, please do not hesitate to contact me. The office telephone contact is [phone]. This note is constructed using voice recognition software. While every effort has been made to ensure accuracy sign fabricator errors may have been included. Yours sincerely, Dr Lisandro Arcos MD, [facility] - Urology Providers of Expert, Compassionate Care for the Genitourinary System Coding Level of Care Code Tele Est Pt Level 3 (76469) Diagnoses Erectile dysfunction associated with type 2 diabetes mellitus E11.69; N52.1 Prostate cancer C61
== END 2023-10-24 14:43 | disposition home or self-care (01) ==
LOC: HO.HUSH 13:48
PROVIDERS: PCP Internal Medicine; Visit Provider Urology
DX: E11.69 Type 2 diabetes mellitus with other specified complication (principal); N52.1 Erectile dysfunction due to diseases classified elsewhere; C61 Malignant neoplasm of prostate
CPT/HCPCS: 99442

== ENCOUNTER → 2023-10-24 13:48 | Outpatient (BNVA) | payer BC, SELFPAY | PROVIDERS: PCP Internal Medicine; Visit Provider Urology ==

== ENCOUNTER 2023-12-03 08:55 | Outpatient (AMB) | payer BC, SELFPAY ==
--- NOTE | 2023-12-03 09:05 | A.OFFVIS_ITS ---
Intake Visit Reasons: 6w follow up(Pending appt dr thomas) Intake Note: Patient is Present for 6m Follow Up Urology Med: Finasteride, Tadalafil, Sildenafil, clotrimazole Antibiotic Allergy:None Blood Thinner:None Cylinder Honer Required: No Accompanied by: Self / Same As Patient Allergies No Known Allergies Allergy (Verified 12/03/23 09:06) Medication List - Last Reconciled 12/03/23 by Lisandro Arcos MD clotrimazole-betamethasone 1-0.05 % 1 appl topical BID 4 weeks empagliflozin (Jardiance) 25 mg PO DAILY finasteride 5 mg PO DAILY 90 days lisinopril 20 mg PO DAILY lisinopril 20 mg PO DAILY metformin ER 1,000 mg PO BID sildenafil 100 mg PO DAILY PRN 30 days tadalafil 10 mg PO DAILY 90 days HPI Comments Details: Andrea PARKER is a very pleasant male. He is a patient of Dr Samano. He is seen for the following urologic conditions. - prostate cancer - erectile dysfunction secondary to diabetes PSA has continued to rise despite finasteride treatment Prolaris reviewed - molecular score 4.7 - risk location upper end of favorable intermediate Threshold percentage 4.3 versus threshold 3.2 Recommendation intervention - robotic prostatectomy Refer Dr. Thomas for assessment Discussed diabetic control. 2+ glucose in urine today. Reduce carbs and increase walking activity. Balanitis 04/12 betamethasone Erectile dysfunction secondary to diabetes Daily Cialis 10mg Prostate cancer: Low risk November 2018, October 2020, April 2023 grade group 2 Pro[address] was diagnosed Dr Arcos 12/06. Diagnosis was reached by needle biopsy, for elevated PSA, PSA at diagnosis 6.4, , size at TRUS 40 cc. PT1c PSA 03/10 3.1, 04/12 4.3, 02/09 5.6, 10/11 7.0 finasteride 05/11 low-grade, low volume Histologic grade: Kamiah score: 3+4=7 (E 2.5) 3+3=6 (d 3.0, d 2.5) % of pattern 4: 10% of the tumor Tumor quantitation: Number cores positive: 3 Total number of cores: 16 % of tissue involved: 10% of all tissue examined Periprostatic fat inv.: Not identified Seminal vesicle inv.: Not identified Perineural inv.: Present 08/10 MRI - 20 g prostate, left apex lateral 1.5 cm, PI-RADS 5 Biopsy 12/06 - low-grade low volume grade group 1 - Left base lateral , 3+3 = 6 40% - Left mid lateral - , 3+3 = 6 20% - Left apex lateral - , 3+3 = 6 10% - Right mid lateral , 3+3 = 6 5% - 4 cores from 12 - Biopsy October 2020 low-grade low volume grade group 1 Histologic type: Adenocarcinoma Histologic grade: Shayla score:3+3=6 Tumor quantitation:? Number cores positive:5 Total number of cores:12 - left base, left mid % of tissue involved: Approximately 5-10% - - no core greater than 50% Periprostatic fat inv.: Not identified Seminal vesicle inv.: Not identified, Perineural inv.: Present, LVI: Not identified TNM Classification of Malignant Tumours (TNM) T1c. The D'Yanni (NCCN) risk category is Low Risk (PSA< 10, Gl < 7, T1c) - Group 1. Recent labs included 04/09 PSA 3.4 08/07 3.1, 10/08 3.3, 08/09 3.9, 04/12 4.3 PFSH Medical History Prostate cancer Tobacco dependence Pulmonary nodule Family History Other HTN (hypertension) Social History Patient Tobacco Use Status: Current everyday Tobacco user Tobacco use type: Cigarette Cigarette Packs Per Day: 0.5 Cigarettes Per Day: 10.0 Years Smoked: 20 Review of Systems Const Denies chills and Denies fever(s) Card Reports no additional complaints and Denies syncope Resp Denies cough GI Denies abdominal pain and Denies heartburn Reports as per HPI and Denies change in libido Neuro Denies syncope Psych Denies change in libido Endo Denies change in libido Physical Exam Const General: cooperative, healthy appearing, comfortable and no acute distress Orientation/consciousness: patient oriented x3 HEENT Face and sinus: Yes normal facial exam Mouth: moist mucous membranes Neck Neck: Yes normal visual inspection, Yes full ROM and Yes trachea midline Chest Chest palpation & inspection: normal inspection of the chest Resp Effort & Inspection: normal respiratory effort, able to speak in complete sentences and no respiratory distress GI Inspection: Yes normal to inspection Back/Spine/Pelvis Cervical Spine: normal cervical lordosis Thoracic/Lumbar Spine: thoracic and lumbar spine normal to inspection Skin General skin exam: no rashes or lesions noted Neuro General: patient oriented x3, gait normal, tone normal and moves all extremities Extrem General: Yes normal to inspection and Yes capillary refill normal Results AMB Urinalysis, Automated UA Leukoctes 0 Natali/uL Last Edit by JIGNESH Conti on 12/03/23 09:15 UA Nitrite Negative Last Edit by JIGNESH Conti on 12/03/23 09:15 UA Urobilinogen 0.2 mg/dL Last Edit by JIGNESH Conti on 12/03/23 09:1 5 UA Protein 0 mg/dL Last Edit by JIGNESH Conti on 12/03/23 09:15 UA pH 6.0 Last Edit by JIGNESH Conti on 12/03/23 09:15 UA Blood 0 Good/uL Last Edit by JIGNESH Conti on 12/03/23 09:15 UA Specific [place] 1.025 Last Edit by JIGNESH Conti on 12/03/23 09: 15 UA Ketone Negative Last Edit by JIGNESH Conti on 12/03/23 09:15 UA Bilirubin 0 mg/dL Last Edit by JIGNESH Conti on 12/03/23 09:15 UA Glucose 500 mg/dL Last Edit by Celia De Anda CCM on 12/03/23 09:15 Quality Reporting (2019) Adult ([facility] 138/04/11/68) Smoking risk assessment performed?: Yes Patient Tobacco Use Status: Current everyday Tobacco user Results Reviewed Results Reviewed: Laboratory Last Values Urine pH (Auto) 6.0 12/03/23 09:15 Specific [place] (Auto) 1.025 12/03/23 09:15 Urine Protein (Auto) 0 mg/dL 12/03/23 09:15 Glucose (UA)(Auto) 500 mg/dL 12/03/23 09:15 Urine Ketones (Auto) Negative 12/03/23 09:15 Urine Blood (Auto) 0 Good/uL 12/03/23 09:15 Urine Nitrite (Auto) Negative 12/03/23 09:15 Urine Bilirubin (Auto) 0 mg/dL 12/03/23 09:15 Urine Urobilinogen (Auto) 0.2 mg/dL 12/03/23 09:15 Leukocyte Esterase (Auto) 0 Natali/uL 12/03/23 09:15 Assessment & Plan Assessment & Plan (1) Prostate cancer: Comment: Low-grade low volume last biopsy 2020 Code(s): C61 - Malignant neoplasm of prostate Category: Medical Plan Three-month follow-up PSA Urology referral for robotic prostatectomy Orders: Orders AMB Urinalysis Automated Today Z13.9 - Encounter for screening, unspecified Prostate Specific Antigen 3 Months C61 - Malignant neoplasm of prostate Referrals Urology Referral C61 - Malignant neoplasm of prostate Patient Instructions: Imaging studies, laboratory and physical exam results were discussed and reviewed in detail. No major barriers to patient understanding were identified. An opportunity to ask questions regarding the treatment plan was provided. All questions were answered. The patient expressed understanding and agreement with the above treatment plan. The patient is aware they should contact our office by phone for worsening of their current condition or the appearance of new urologic symptoms. Compliance is encouraged with any medications and followup testing that is ordered. It is a privilege to participate in the urologic care of your patient. If you have any questions or concerns regarding treatment for the above conditions, or other urologic issues, please do not hesitate to contact me. The office telephone contact is [phone]. This note is constructed using voice recognition software. While every effort has been made to ensure accuracy pharmacovigilance scientist errors may have been included. Yours sincerely, Dr Lisandro Arcos MD, [facility] - Urology Providers of Expert, Compassionate Care for the Genitourinary System Coding Level of Care Code Est Pt Level 3 (71390) Diagnoses Prostate cancer C61
== END 2023-12-03 09:35 | disposition home or self-care (01) ==
PROVIDERS: PCP Internal Medicine; Visit Provider Urology
DX: C61 Malignant neoplasm of prostate (principal); Z13.9 Encounter for screening, unspecified
CPT/HCPCS: 99213

== ENCOUNTER → 2023-12-03 08:55 | Outpatient (BNVA) | payer BC, SELFPAY | PROVIDERS: PCP Internal Medicine; Visit Provider Urology | DX: C61 Malignant neoplasm of prostate (principal); N52.9 Male erectile dysfunction, unspecified; Z79.899 Other long term (current) drug therapy | CPT/HCPCS: 81003 ==

== ENCOUNTER 2024-03-06 08:32 | Outpatient (AMB) | payer BC, SELFPAY ==
--- NOTE | 2024-03-06 08:37 | A.OFFVIS_ITS ---
Intake Visit Reasons: 3M PSA(set)Elevated Intake Note: Patient is present for 3M PSA Urology Medication:FINASTERIDE Antibiotic Allergy:NONE Blood Thinner:NONE Deicer Inspector Electric Required: No Allergies No Known Allergies Allergy (Verified 03/06/24 08:45) HPI Comments Details: Andrea PARKER is a very pleasant male. He is a patient of Dr Samano. He is seen for the following urologic conditions. - prostate cancer - erectile dysfunction secondary to diabetes PSA has continued to rise despite finasteride treatment Prolaris reviewed - molecular score 4.7 - risk location upper end of favorable intermediate Threshold percentage 4.3 versus threshold 3.2 Previous recommendation for robotic prostatectomy. Has some degree of trepidation regarding surgery. Discussed radiation. He is interested in finding out about this. Referral to [facility] radiation oncology Would be candidate for space oar with Visicoil placement Discussed diabetic control. 2+ glucose in urine today. Reduce carbs and increase walking activity. PSA 03/14 7.6 Balanitis 04/12 betamethasone Erectile dysfunction secondary to diabetes Daily Cialis 10mg Prostate cancer: Low risk November 2018, October 2020, April 2023 grade group 2 Prostate cancer was diagnosed Dr Arcos 12/06. Diagnosis was reached by needle biopsy, for elevated PSA, PSA at diagnosis 6.4, , size at TRUS 40 cc. PT1c PSA 03/10 3.1, 04/12 4.3, 02/09 5.6, 10/11 7.0 finasteride 05/11 low-grade, low volume Histologic grade: [place] score: 3+4=7 (E 2.5) 3+3=6 (d 3.0, d 2.5) % of pattern 4: 10% of the tumor Tumor quantitation: Number cores positive: 3 Total number of cores: 16 % of tissue involved: 10% of all tissue examined Periprostatic fat inv.: Not identified Seminal vesicle inv.: Not identified Perineural inv.: Present 08/10 MRI - 20 g prostate, left apex lateral 1.5 cm, PI-RADS 5 Biopsy 12/06 - low-grade low volume grade group 1 - Left base lateral , 3+3 = 6 40% - Left mid lateral - , 3+3 = 6 20% - Left apex lateral - , 3+3 = 6 10% - Right mid lateral , 3+3 = 6 5% - 4 cores from 12 - Biopsy October 2020 low-grade low volume grade group 1 Histologic type: Adenocarcinoma Histologic grade: Shayla score:3+3=6 Tumor quantitation:? Number cores positive:5 Total number of cores:12 - left base, left mid % of tissue involved: Approximately 5-10% - - no core greater than 50% Periprostatic fat inv.: Not identified Seminal vesicle inv.: Not identified, Perineural inv.: Present, LVI: Not identified TNM Classification of Malignant Tumours (TNM) T1c. The D'Yanni (NCCN) risk category is Low Risk (PSA< 10, Gl < 7, T1c) - Group 1. Recent labs included 04/09 PSA 3.4 08/07 3.1, 10/08 3.3, 08/09 3.9, 04/12 4.3 PFSH Medical History Prostate cancer Tobacco dependence Pulmonary nodule Family History Other HTN (hypertension) Social History Patient Tobacco Use Status: Current everyday Tobacco user Tobacco use type: Cigarette Cigarette Packs Per Day: 0.5 Cigarettes Per Day: 10.0 Years Smoked: 20 Review of Systems Const Denies chills and Denies fever(s) Card Reports no additional complaints and Denies syncope Resp Denies cough GI Denies abdominal pain and Denies heartburn Reports as per HPI and Denies change in libido Neuro Denies syncope Psych Denies change in libido Endo Denies change in libido Physical Exam Const General: cooperative, healthy appearing, comfortable and no acute distress Orientation/consciousness: patient oriented x3 HEENT Face and sinus: Yes normal facial exam Mouth: moist mucous membranes Neck Neck: Yes normal visual inspection, Yes full ROM and Yes trachea midline Chest Chest palpation & inspection: normal inspection of the chest Resp Effort & Inspection: normal respiratory effort, able to speak in complete sentences and no respiratory distress GI Inspection: Yes normal to inspection Back/Spine/Pelvis Cervical Spine: normal cervical lordosis Thoracic/Lumbar Spine: thoracic and lumbar spine normal to inspection Skin General skin exam: no rashes or lesions noted Neuro General: patient oriented x3, gait normal, tone normal and moves all extremities Extrem General: Yes normal to inspection and Yes capillary refill normal Quality Reporting (2019) Adult ([facility] 138//) Smoking risk assessment performed?: Yes Patient Tobacco Use Status: Current everyday Tobacco user Assessment & Plan Assessment & Plan (1) Prostate cancer: Comment: Low-grade low volume last biopsy 2020 Code(s): C61 - Malignant neoplasm of prostate Category: Medical Plan Referral to Radiation Oncology Three-week follow-up tele Orders: Referrals Radiation Oncology Referral C61 - Malignant neoplasm of prostate Patient Instructions: Imaging studies, laboratory and physical exam results were discussed and reviewed in detail. No major barriers to patient understanding were identified. An opportunity to ask questions regarding the treatment plan was provided. All questions were answered. The patient expressed understanding and agreement with the above treatment plan. The patient is aware they should contact our office by phone for worsening of their current condition or the appearance of new urologic symptoms. Compliance is encouraged with any medications and followup testing that is ordered. It is a privilege to participate in the urologic care of your patient. If you have any questions or concerns regarding treatment for the above conditions, or other urologic issues, please do not hesitate to contact me. The office telephone contact is [phone]. This note is constructed using voice recognition software. While every effort has been made to ensure accuracy accountancy professor errors may have been included. Yours sincerely, Dr Lisandro Arcos MD, FRANT[facility] - Urology Providers of Expert, Compassionate Care for the Genitourinary System Coding Level of Care Code Est Pt Level 4 (60073) Diagnoses Prostate cancer C61
== END 2024-03-06 09:58 | disposition home or self-care (01) ==
PROVIDERS: PCP Internal Medicine; Visit Provider Urology
DX: C61 Malignant neoplasm of prostate (principal)
CPT/HCPCS: 99214

== ENCOUNTER 2024-04-10 09:30 | Outpatient (AMB) | payer BC, SELFPAY ==
--- NOTE | 2024-04-10 09:31 | MHC.OFFVIS ---
Intake Visit Reasons: 3w follow up/Radiation/Onc Intake Note: Pt presents to the office today as a telehealth visit for a 3 week follow up radiation/onc. Allergies No Known Allergies Allergy (Verified 04/10/24 09:31) HPI Comments Details: Andrea PARKER is a very pleasant male. He is a patient of Dr Samano. He is seen for the following urologic conditions. - prostate cancer - erectile dysfunction secondary to diabetes Telemedicine Evaluation 15 min Consultation [employer] Johanne Video Completed evaluation with Radiation Oncology [facility] He is being re-staged with prostate MRI and PET-CT Prostate MRI completed Plan for [facility] in office in 2 weeks and discussion about SpaceOAR which will be dependent on prostate MR result Prolaris reviewed - molecular score 4.7 - risk location upper end of favorable intermediate Threshold percentage 4.3 versus threshold 3.2 PSA 03/14 7.6 Balanitis 04/12 betamethasone Erectile dysfunction secondary to diabetes Daily Cialis 10mg Prostate cancer: Low risk November 2018, October 2020, April 2023 grade group 2 Prostate cancer was diagnosed Dr Arcos 12/06. Diagnosis was reached by needle biopsy, for elevated PSA, PSA at diagnosis 6.4, , size at TRUS 40 cc. PT1c PSA 03/10 3.1, 04/12 4.3, 02/09 5.6, 10/11 7.0 finasteride 05/11 low-grade, low volume Histologic grade: [place] score: 3+4=7 (E 2.5) 3+3=6 (d 3.0, d 2.5) % of pattern 4: 10% of the tumor Tumor quantitation: Number cores positive: 3 Total number of cores: 16 % of tissue involved: 10% of all tissue examined Periprostatic fat inv.: Not identified Seminal vesicle inv.: Not identified Perineural inv.: Present 08/10 MRI - 20 g prostate, left apex lateral 1.5 cm, PI-RADS 5 Biopsy 12/06 - low-grade low volume grade group 1 - Left base lateral , 3+3 = 6 40% - Left mid lateral - , 3+3 = 6 20% - Left apex lateral - , 3+3 = 6 10% - Right mid lateral , 3+3 = 6 5% - 4 cores from 12 - Biopsy October 2020 low-grade low volume grade group 1 Histologic type: Adenocarcinoma Histologic grade: [place] score:3+3=6 Tumor quantitation:? Number cores positive:5 Total number of cores:12 - left base, left mid % of tissue involved: Approximately 5-10% - - no core greater than 50% Periprostatic fat inv.: Not identified Seminal vesicle inv.: Not identified, Perineural inv.: Present, LVI: Not identified TNM Classification of Malignant Tumours (TNM) T1c. The D'Yanni (NCCN) risk category is Low Risk (PSA< 10, Gl < 7, T1c) - Group 1. Recent labs included 04/09 PSA 3.4 08/07 3.1, 10/08 3.3, 08/09 3.9, 04/12 4.3 PFSH Medical History Prostate cancer Tobacco dependence Pulmonary nodule Family History Other HTN (hypertension) Social History Patient Tobacco Use Status: Current everyday Tobacco user Tobacco use type: Cigarette Cigarette Packs Per Day: 0.5 Cigarettes Per Day: 10.0 Years Smoked: 20 Review of Systems Const All systems reviewed & are unremarkable except as noted in HPI and below Reports no additional complaints Card Reports no additional complaints and Denies syncope Resp Reports no additional complaints GI Reports no additional complaints Reports as per HPI and Denies change in libido Musc Reports no additional complaints Neuro Denies syncope Psych Denies change in libido Endo Denies change in libido Physical Exam Telemedicine evaluation Appropriate responses Regular breathing rate and rhythm Const General: cooperative, healthy appearing, comfortable and no acute distress Orientation/consciousness: patient oriented x3 HEENT Head: Yes normal to inspection Ears: hearing grossly normal bilaterally Face and sinus: Yes normal facial exam Mouth: moist mucous membranes Eyes General: appearance normal, both eyes and all related structures Neck Neck: Yes normal visual inspection Chest Chest palpation & inspection: normal inspection of the chest Resp Effort & Inspection: normal respiratory effort and able to speak in complete sentences GI Inspection: Yes normal to inspection Back/Spine/Pelvis Cervical Spine: normal cervical lordosis Thoracic/Lumbar Spine: thoracic and lumbar spine normal to inspection Skin General skin exam: no rashes or lesions noted Neuro General: patient oriented x3, gait normal, tone normal and moves all extremities Extrem General: Yes normal to inspection and Yes capillary refill normal Telehealth Telehealth Telehealth Platform: [employer] Location of provider rendering services: practice address Location of patient: address on file Patient Identification confirmed using: Name, : Yes Telehealth method: video Patient verbally consented to treatment: Yes Patient verbally consented to billing insurance company: Yes Patient informed of any privacy concerns related to visit: Yes Assessment & Plan Assessment & Plan (1) Prostate cancer: Comment: Low-grade low volume last biopsy 2020 Code(s): C61 - Malignant neoplasm of prostate Category: Medical (2) Erectile dysfunction associated with type 2 diabetes mellitus: Code(s): E11.69 - Type 2 diabetes mellitus with other specified complication; N52.1 - Erectile dysfunction due to diseases classified elsewhere Category: Medical Plan Plan for [facility] in office with discussion for SpaceOAR and Visicoil Patient Instructions: This note is constructed using voice recognition software. While every effort has been made to ensure accuracy customer service assistant errors may have been included. Imaging studies, laboratory and physical exam results were discussed and reviewed in detail. No major barriers to patient understanding were identified. An opportunity to ask questions regarding the treatment plan was provided. All questions were answered. The patient expressed understanding and agreement with the above treatment plan. The patient is aware they should contact our office by phone for worsening of their current condition or the appearance of new urologic symptoms. Compliance is encouraged with any medications and followup testing that is ordered. It is a privilege to participate in the urologic care of your patient. If you have any questions or concerns regarding treatment for the above conditions, or other urologic issues, please do not hesitate to contact me. The office telephone contact is [phone]. Sincerely, Dr Lisandro Arcos MD, FRNAT[facility] - Urology Compassionate Specialist Care for the Genitourinary System Coding Level of Care Code Est Pt Level 3 (59835) Diagnoses Prostate cancer C61 Erectile dysfunction associated with type 2 diabetes mellitus E11.69; N52.1
--- OUTSIDE RECORDS SUMMARY | 2024-04-10 10:02 | XMS_ITS | Clinical Summary ---
Author Organization [facility] ity Address [address] [place] [address] Care Team Providers Care Sustainability Project Manager Name Role Phone Jony Samano MD Primary Care Provider Medical History Medical History Date Comments Diabetes mellitus (CMS/HCC) DX:D iabetes mellitus (HCC) Hypertension DX:Hypertension Family History Medical History Relation Name Comments Cancer Brother colon Relation Name Status Comments Brother Social History Tobacco Use Types Packs/Day Years Used Date Smoking Tobacco: Every Day Cigarettes Smokeless Tobacco: Never Alcohol Use Standard Drinks/Week Comments Yes 6 (1 standard drink = 0.6 oz pur e alcohol) Sex and Gender Information Value Date Recorded Sex Assigned at Not on file Legal Sex Male 8:03 AM EST Gender Identity Not on file Sexual Orientation Not on file Obstetrics History Last Filed Vital Signs Vital Sign Reading [...] Mass Index 27.6 11/21/2023 10:50 AM EDT Plan of Treatment Upcoming Encounters Date Type Department Care Team (Late st Contact Info) Description 07/22/2024 9:15 AM EDT Office Visit [facility] Hematology Oncology [address] [place] [address] Estee-Dina Mccall MD [address] [place] [address] Health Maintenance Due Date Last Done Comments COVID-19 Vaccine (#1) 1967 DTaP,Tdap,and Td Vaccines (1 - Tdap) 1981 Pneumococcal Vaccine: 50+ Ye ars (1 of 2 - PCV) 1981 Pneumococcal Vaccine: Pediat rics (0 to 5 Years) and At-Risk Patients (6 to 64 Years) (1 of 2 - PCV) 1981 Zoster Vaccines (1 of 2) 1981 Cholesterol Screening (Lipid Panel) 01/21/2022 Colorectal Cancer Screening: Colonoscopy 01/21/2022 Depression Screening 01/21/2022 HIV Screening 01/21/2022 Hepatitis C Screening 01/21/2022 Social Influencers of Health Screening 01/21/2022 Influenza Vaccine (#1) 2023 RSV Immunization Patients 60 + Years Old (1 - 1-dose 75+ series) 2037 HIB Vaccines Aged Out No longer eligi ble based on patient's age to complete this topic HPV Vaccines Aged Out No longer eligi ble based on patient's age to complete this topic Hepatitis A Vaccines Aged Out No long er eligible based on patient's age to complete this topic Hepatitis B Vaccines Aged Out No long er eligible based on patient's age to complete this topic IPV Vaccines Aged Out No longer eligi ble based on patient's age to complete this topic MMR Vaccines Aged Out No longer eligi ble based on patient's age to complete this topic Meningococcal ACWY Vaccine Aged Out N o longer eligible based on patient's age to complete this topic Meningococcal B Vacine Aged Out No lo nger eligible based on patient's age to complete this topic RSV Immunization Patients Un tal 20 months Aged Out No longer eligible b ased on patient's age to complete this topic Varicella Vaccines Aged Out No longer eligible based on patient's age to complete this topic Insurance [facility] Care Teams Sustainability Project Manager Relationship Specialty Start Date End Date Jony Samano MD PCP - General 11/11/23
--- OUTSIDE RECORDS SUMMARY | 2024-04-10 10:02 | XMS_ITS | Continuity of Care Document ---
Author Organization [facility] [address] [place] [address] Phone [phone] Social History Type Date Description Comments Sex Unknown Medical Devices Description No Information Available Encounters Description No Information Available Assessments Description No Information Available Plan of Treatment No Information Available Functional Status Description No Information Available Mental Status Description No Information Available Referrals Description No Information Available
--- OUTSIDE RECORDS SUMMARY | 2024-04-10 10:02 | XMS_ITS | Encounter Summary ---
Author Organization [facility] Address [address] [place] [address] Care Team Providers Care Shelter Monitor Name Role Phone Jony Samano MD Primary Care Provider [phone] Encounter Details Date Type Department Care Team (Late st Contact Info) Description 11/21/2023 10:38 AM EDT Hospital Encounter TH HISTORIC ENCOUNTERS EASTERN CONVERSION ONLY Dina Negrete MD [address] [place] [phone] Social History Tobacco Use Types Packs/Day [...] grade low-volume grade group 1 disease adenocarcinoma [place] 3+3 equal 6, at that time 5 cores out of 12 were positive. Heunderwent the latest biopsy in April 2023, and underwent more extensive testing. At that time Results and indicated some localized disease progression, [place] 3+4 equal 7, grade group 2 in [...] sisters are healthy Social history-Works as a [employer]. Current smoker, quarter pack a day and [...] documented in this encounter Plan of Treatment Upcoming Encounters Date Type Department Care Team (Late st Contact Info) Description 07/22/2024 9:15 AM EDT Office Visit [facility] Hematology Oncology [address] [place] [phone] Dina Negrete MD [address] [place] [address] documented as of this encounter Visit Diagnoses Not on filedocumented in this encounter Care Teams Shelter Monitor Relationship Specialty Start Date End Date Jony Samano MD PCP - General 11/11/23 documented as of this encounter
--- OUTSIDE RECORDS SUMMARY | 2024-04-10 10:02 | XMS_ITS | Clinical Summary ---
Author Organization [facility] Address [address] [place] [address] Care Team Providers Care Recep Name Role Phone Jony Samano MD Primary Care Provider [phone] Allergies No known active allergies Medications Medication Sig Dispensed Refills Start Date End Date Status finasteride (PROSCAR) 5 MG tablet Take 1 tablet (5 mg total) by mouth daily. 0 09/20/2023 Activ e lisinopril (PRINIVIL,ZESTRIL) tablet 30 mg Take 1 tablet (30 mg total) by mouth daily. for 30 days 0 11/01/2023 Active metFORMIN (GLUCOPHAGE-XR) ER 24 hr tablet 500 mg TAKE 2 TABLETS BY MOUTH EVERY MORNING THEN TAKE 2 TABLETS EVERY EVENING 0 10/09/2023 Active rosuvastatin (CRESTOR) tablet 20 mg Take 1 tablet (20 mg total) by mouth daily. for 30 days 0 11/06/2023 Active Ozempic, 0.25 or 0.5 MG/DOSE, 2 MG/3ML SOPN INJECT 0.25 MG SUBCUTANEOUSLY ONCE WEEKLY DIRECTED 0 11/06/2023 Active Active Problems Problem Noted Date Diagnosed Date Malignant neoplasm of prostate 11/21/2023 Cancer Staging:Clinical stage from 05/06/2023:Stage IIB(cT1c, cN0, cM0, PSA: 7, Grade Group: 2) - Signed by Dina Leavitt MD on 11/21/2023 Family History Medical History Relation Name Comments Cancer Brother colon Relation Name Status Comments Brother Social History Tobacco Use Types Packs/Day Years Used Date Smoking Tobacco: Every Day Cigarettes 0.3 Smokeless Tobacco: Never Alcohol Use Standard Drinks/Week Comments Yes 6 (1 standard drink = 0.6 oz pur e alcohol) Sex and Gender Information Value Date Recorded Sex Assigned at Male 11/11/2023 1:26 PM EDT Gender Identity Not on file Sexual Orientation Not on file Job Start Date Occupation Industry Not on file Not on file Not on file Last Filed Vital Signs Vital Sign Reading Time Taken Comments Blood Pressure 135/80 11/21/2023 10:50 AM EDT Pulse 76 11/21/2023 10:50 AM EDT Temperature 36.9 ??C (98.4 ??F) 11/21/2023 10:50 AM E DT Respiratory Rate - - Oxygen Saturation 99% 11/21/2023 10:50 AM EDT Inhaled Oxygen Concentration - - Weight 79.9 kg (176 lb 3.2 oz) 11/21/2023 10:50 AM EDT Height 170.2 cm (5' 7 ) 11/21/2023 10:50 AM EDT Body Mass Index 27.6 11/21/2023 10:50 AM EDT Plan of Treatment Health Maintenance Due Date Last Done Comments Hepatitis C Screening 1960 COVID-19 Vaccine (#1) 1967 Pneumococcal Vaccine (1 of 2 - PCV) 02/12/1968 Depression Screening 1974 Preventative Health Evaluation 02/12/1980 DTap / Tdap / Td (1 - Tdap) 1981 Shingrix-Zoster Vaccine (1 of 2) 1981 Colon Cancer Screening (Colonoscopy) 2007 Influenza Vaccine (#1) 2023 RSV Adult > 60+ Yrs or Pregn ant (1 - 1-dose 75+ series) 2037 Hepatitis B Vaccines Aged Out No long er eligible based on patient's age to complete this topic RSV Ped < 20 months Aged Out No longe r eligible based on patient's age to complete this topic Care Teams Recep Relationship Specialty Start Date End Date Jony Samano MD [address] [address] PCP - General Internal Medicine 11/11/23
== END 2024-04-10 10:34 | disposition home or self-care (01) ==
LOC: HO.HUSH 09:30
PROVIDERS: PCP Internal Medicine; Visit Provider Urology
DX: C61 Malignant neoplasm of prostate (principal); E11.69 Type 2 diabetes mellitus with other specified complication; N52.1 Erectile dysfunction due to diseases classified elsewhere
CPT/HCPCS: 99213

== ENCOUNTER → 2024-04-10 09:30 | Outpatient (BNVA) | payer BC, SELFPAY | PROVIDERS: PCP Internal Medicine; Visit Provider Urology ==

== ENCOUNTER 2024-05-07 07:59 | Outpatient (AMB) | payer BC, SELFPAY ==
--- NOTE | 2024-05-07 08:08 | A.OFFVIS_ITS ---
Intake Visit Reasons: GnRH/discuss procedure/radiation oncology (set) Intake Note: Pt presents to the office today for a GnRH/discuss procedure/radiation oncology. Allergies No Known Allergies Allergy (Verified 05/07/24 08:09) HPI Comments Details: Andrea PARKER is a very pleasant male. He is a patient of Dr Samano. He is seen for the following urologic conditions. - prostate cancer - Dr Rose radiation oncology - erectile dysfunction secondary to diabetes Here for GNRH Restaging PET-CT shows localized activity within left prostate Restaging prostate MRI - broad-based abutment of lesion on prostate capsule slight indistinct margin which raises concern for capsular invasion however no clear evidence. No evidence of adenopathy or seminal vesicle invasion. Is candidate for SpaceOAR - no clear evidence of MAISHA. Abutment only. Given grade group at last biopsy was only grade group 2 there is minimal risk from SpaceOAR placement. Will be organized Prolaris reviewed - molecular score 4.7 - risk location upper end of favorable intermediate Threshold percentage 4.3 versus threshold 3.2 PSA 03/14 7.6 Balanitis 04/12 betamethasone Erectile dysfunction secondary to diabetes Daily Cialis 10mg Prostate cancer: Low risk November 2018, October 2020, April 2023 grade group 2 Prostate cancer was diagnosed Dr Arcos 12/06. Diagnosis was reached by needle biopsy, for elevated PSA, PSA at diagnosis 6.4, , size at TRUS 40 cc. PT1c PSA 03/10 3.1, 04/12 4.3, 02/09 5.6, 10/11 7.0 finasteride 05/11 low-grade, low volume Histologic grade: Orem score: 3+4=7 (E 2.5) 3+3=6 (d 3.0, d 2.5) % of pattern 4: 10% of the tumor Tumor quantitation: Number cores positive: 3 Total number of cores: 16 % of tissue involved: 10% of all tissue examined Periprostatic fat inv.: Not identified Seminal vesicle inv.: Not identified Perineural inv.: Present 08/10 MRI - 20 g prostate, left apex lateral 1.5 cm, PI-RADS 5 Biopsy 12/06 - low-grade low volume grade group 1 - Left base lateral , 3+3 = 6 40% - Left mid lateral - , 3+3 = 6 20% - Left apex lateral - , 3+3 = 6 10% - Right mid lateral , 3+3 = 6 5% - 4 cores from 12 - Biopsy October 2020 low-grade low volume grade group 1 Histologic type: Adenocarcinoma Histologic grade: Shayla score:3+3=6 Tumor quantitation:? Number cores positive:5 Total number of cores:12 - left base, left mid % of tissue involved: Approximately 5-10% - - no core greater than 50% Periprostatic fat inv.: Not identified Seminal vesicle inv.: Not identified, Perineural inv.: Present, LVI: Not identified TNM Classification of Malignant Tumours (TNM) T1c. The D'Yanni (NCCN) risk category is Low Risk (PSA< 10, Gl < 7, T1c) - Group 1. Recent labs included 04/09 PSA 3.4 08/07 3.1, 10/08 3.3, 08/09 3.9, 04/12 4.3 PFSH Medical History Prostate cancer Tobacco dependence Pulmonary nodule Family History Other HTN (hypertension) Social History Patient Tobacco Use Status: Current everyday Tobacco user Tobacco use type: Cigarette Cigarette Packs Per Day: 0.5 Cigarettes Per Day: 10.0 Years Smoked: 20 Review of Systems Const Denies chills and Denies fever(s) Card Reports no additional complaints and Denies syncope Resp Denies cough GI Denies abdominal pain and Denies heartburn Reports as per HPI and Denies change in libido Neuro Denies syncope Psych Denies change in libido Endo Denies change in libido Physical Exam Const General: cooperative, healthy appearing, comfortable and no acute distress Orientation/consciousness: patient oriented x3 HEENT Face and sinus: Yes normal facial exam Mouth: moist mucous membranes Neck Neck: Yes normal visual inspection, Yes full ROM and Yes trachea midline Chest Chest palpation & inspection: normal inspection of the chest Resp Effort & Inspection: normal respiratory effort, able to speak in complete sentences and no respiratory distress GI Inspection: Yes normal to inspection Back/Spine/Pelvis Cervical Spine: normal cervical lordosis Thoracic/Lumbar Spine: thoracic and lumbar spine normal to inspection Skin General skin exam: no rashes or lesions noted Neuro General: patient oriented x3, gait normal, tone normal and moves all extremities Extrem General: Yes normal to inspection and Yes capillary refill normal Office Meds Eligard (6 month) 45 mg (6 month) subcutaneous syringe Performing Provider: Lisandro Arcos MD Performing Location: [facility] [place], [place] [facility] Administered by: Austyn Crocker LPN on 05/07/24 09:16 Dose Route Admin Location Dispensed Lot Number Expiration Date [place] [employer] 45 mg subcut right arm 45 mg [id number] 09/18/25 32148-647-58 [employer] Assessment & Plan Assessment & Plan (1) Prostate cancer: Comment: Low-grade low volume last biopsy 2020 Code(s): C61 - Malignant neoplasm of prostate Category: Medical Plan Risks, benefits and alternatives to therapy were discussed. These include but are not limited to infection, bleeding, damage to local organs and tissues, need for further interventions. Anesthetic risks regarding cardiac arrhythmia, blood clots, and potential mortality were discussed. The patient understands the typical recovery time and the outpatient nature of the procedure. After consideration of these risks the patient gives full informed consent and they wish to move ahead with the procedure. SpaceOAR with marker placement Orders: Orders AMB Leuprolide Injection - Practice Supplied Today C61 - Malignant neoplasm of prostate Medications: New Eligard (6 month) (leuprolide acetate (6 month)) 45 mg subcut ONCE 1 ea 0RF NS C61 - Malignant neoplasm of prostate Patient Instructions: This note is constructed using voice recognition software. While every effort has been made to ensure accuracy financial foundations representative errors may have been included. Imaging studies, laboratory and physical exam results were discussed and reviewed in detail. No major barriers to patient understanding were identified. An opportunity to ask questions regarding the treatment plan was provided. All questions were answered. The patient expressed understanding and agreement with the above treatment plan. The patient is aware they should contact our office by phone for worsening of their current condition or the appearance of new urologic symptoms. Compliance is encouraged with any medications and followup testing that is ordered. It is a privilege to participate in the urologic care of your patient. If you have any questions or concerns regarding treatment for the above conditions, or other urologic issues, please do not hesitate to contact me. The office teleph one contact is [phone]. Sincerely, Dr Lisandro Arcos MD, FR[facility] - Urology Compassionate Specialist Care for the Genitourinary System Coding Level of Care Code Est Pt Level 3 (28630) Complex EM visit Add On G2211 Diagnoses Prostate cancer C61
== END 2024-05-07 09:18 | disposition home or self-care (01) ==
LOC: HO.HUSH 08:00
PROVIDERS: PCP Internal Medicine; Visit Provider Urology
DX: C61 Malignant neoplasm of prostate (principal)
CPT/HCPCS: 99213

== ENCOUNTER → 2024-05-07 07:59 | Outpatient (BNVA) | payer BC, SELFPAY | PROVIDERS: PCP Internal Medicine; Visit Provider Urology | DX: C61 Malignant neoplasm of prostate (principal); E11.69 Type 2 diabetes mellitus with other specified complication; N52.1 Erectile dysfunction due to diseases classified elsewhere | CPT/HCPCS: 96402; J9217 ==

== ENCOUNTER 2024-06-18 07:24 | Outpatient (REF) | payer BC, SELFPAY ==
[2024-06-18] MEDS: Lidocaine HCl 1 % MPF 5 ML VIAL 10 ML SUBCUT (08:50)
[2024-06-18] MEDS: levoFLOXacin 500 MG TABLET PO (08:51)
--- NOTE | 2024-06-18 08:54 | W.PM.OPN ---
Operative Note Operative Note Date of Service: 06/18/24 Narrative: Preoperative diagnosis: Prostate cancer Postoperative diagnosis: Prostate cancer Procedure: 1. Transrectal ultrasound-guided pudendal nerve block 2. Transrectal ultrasound-guided visicoil seed placement Surgeon: Dr. Lisandro Arcos Anesthetic: Local Indications for procedure: Prostate Cancer Procedure: After informed consent was verified, the patient was brought into the procedure area and lay left-hand side down on the table. Patient identity confirmed. Perioperative antibiotics confirmed. Gel was placed per rectum Ultrasound probe was placed per rectum A ultrasound-guided pudendal nerve block was performed using 10 cc of 1% lidocaine. 8 cc was placed at the base and 2 cc of the apex. 2 seed markers placed. 1 on the right, 1 on the left. The purpose is for prostate localization and targeting. He tolerated the procedure well. Was able to ambulate to bathroom after 5 minutes. Printed instructions regarding antibiotic use and common side effects such as low-grade temperature and bleeding were given
== END 2024-06-18 07:25 | disposition home or self-care (01) ==
LOC: HO.US 07:24
PROVIDERS: PCP Internal Medicine; Visit Provider Urology
DX: C61 Malignant neoplasm of prostate (principal)
CPT/HCPCS: 55700; 76942; A4648; J2003

== ENCOUNTER → 2024-06-18 07:24 | Outpatient (BNV) | payer BC, SELFPAY | PROVIDERS: PCP Internal Medicine; Visit Provider Urology | DX: C61 Malignant neoplasm of prostate (principal) | CPT/HCPCS: 55876; 76872 ==

== ENCOUNTER 2024-10-02 12:22 | Outpatient (AMB) | payer BC, SELFPAY ==
--- OUTSIDE RECORDS SUMMARY | 2024-10-02 12:25 | XMS_ITS | Clinical Summary ---
Author Organization [facility] Address [address] [place] [address] Phone Care Team Providers Care Safety Engineer Name Role Phone Jony Samano MD Primary Care Provider [phone] Medical History Medical History Date Comments Diabetes mellitus (CMS/HCC V24, CMS/HCC V28) DX:Diabetes mellitus (HCC) Hypertension DX:Hypertension Family History Medical [...] Health Maintenance Due Date Last Done Comments DTaP,Tdap,and Td Vaccines (1 - Tdap) 1981 Pneumococcal Vaccine: 50+ Ye ars (1 of 2 - PCV) 1981 Zoster Vaccines (1 of 2) 02/12/2012 Cholesterol Screening (Lipid Panel) 01/21/2022 Colorectal Cancer Screening: Colonoscopy 01/21/2022 HIV Screening 01/21/2022 Hepatitis C Screening 01/21/2022 Social Influencers of Health Screening 01/21/2022 COVID-19 Vaccine (1 - 2023-2 5 season) 2023 Depression Screening 02/19/2024 Influenza Vaccine (#1) 2024 RSV Immunization Adult Patie nts (1 - 1-dose 75+ series) 2037 HIB [...] age to complete this topic Meningococcal B Vaccine Aged Out No l onger eligible based on patient's age to complete this topic RSV Immunization Patients Un tal 20 months Aged Out No longer eligible b ased on patient's age to complete this topic Varicella Vaccines Aged Out No longer eligible based on patient's age to complete this topic Insurance Care Teams Safety Engineer Relationship Specialty Start Date End Date Jony Samano MD [address] [place] [address] [facility] - General 11/11/23
--- OUTSIDE RECORDS SUMMARY | 2024-10-02 12:25 | XMS_ITS | Clinical Summary ---
Author Organization [facility] Address [address] [place] [address] Care Team Providers Care Space Studies Faculty Member Name Role Phone Jony Samano MD Primary Care Provider [phone] Allergies No known active allergies Medications Medication [...] 76 11/21/2023 10:50 AM EDT Temperature 36.9 C (98.4 F) 11/21/2023 10:50 AM EDT Respiratory Rate - - Oxygen Saturation 99% [...] Cancer Screening (Colonoscopy) 2007 Influenza Vaccine (#1) 2024 RSV Adult > 60+ Yrs or Pregn ant (1 - 1-dose 75+ series) 2037 Hepatitis B Vaccines Aged Out No long er eligible based on patient's age to complete this topic RSV Ped < 20 months Aged Out No longe r eligible based on patient's age to complete this topic Care Teams Space Studies Faculty Member Relationship Specialty Start Date End Date Jony Samano MD [address] [address] PCP - General Internal Medicine 11/11/23
--- OUTSIDE RECORDS SUMMARY | 2024-10-02 12:25 | XMS_ITS | Continuity of Care Document ---
Author Organization [facility] [address] [place] [address] Phone [phone] Social History Type Date Description Comments Sex Male Sex Unknown Medical Devices Description No Information Available Encounters Description No Information Available Assessments Description No Information Available Plan of Treatment No Information Available Functional Status Description No Information Available Mental Status Description No Information Available Referrals Description No Information Available
--- NOTE | 2024-10-02 12:51 | A.OFFVIS_ITS ---
Intake Visit Reasons: Prostate cancer follow up Intake Note: Pt presents to the office today for follow up Urology meds: Finasteride Blood Thinner : none . Supervisor Bindery Required: No Accompanied by: Self / Same As Patient Allergies No Known Allergies Allergy (Verified 10/02/24 12:52) HPI Comments Details: Andrea PARKER is a very pleasant male. He is a patient of Dr Samano. He is seen for the following urologic conditions. - prostate cancer - Dr Rose radiation oncology - erectile dysfunction secondary to diabetes Finished external beam radiation 09/11 Here for GNRH Restaging PET-CT shows localized activity within left prostate Restaging prostate MRI - broad-based abutment of lesion on prostate capsule slight indistinct margin which raises concern for capsular invasion however no clear evidence. No evidence of adenopathy or seminal vesicle invasion. Prolaris reviewed - molecular score 4.7 - risk location upper end of favorable intermediate Threshold percentage 4.3 versus threshold 3.2 PSA 03/14 7.6 Balanitis 04/12 betamethasone Erectile dysfunction secondary to diabetes Daily Cialis 10mg Prostate cancer: Low risk November 2018, October 2020, April 2023 grade group 2 External beam radiation with short term hormones completed 09/11 Prostate cancer was diagnosed Dr Arcos 12/06. Diagnosis was reached by needle biopsy, for elevated PSA, PSA at diagnosis 6.4, , size at TRUS 40 cc. PT1c PSA 03/10 3.1, 04/12 4.3, 02/09 5.6, 10/11 7.0 finasteride 05/11 low-grade, low volume Histologic grade: Rockwood score: 3+4=7 (E 2.5) 3+3=6 (d 3.0, d 2.5) % of pattern 4: 10% of the tumor Tumor quantitation: Number cores positive: 3 Total number of cores: 16 % of tissue involved: 10% of all tissue examined Periprostatic fat inv.: Not identified Seminal vesicle inv.: Not identified Perineural inv.: Present 08/10 MRI - 20 g prostate, left apex lateral 1.5 cm, PI-RADS 5 Biopsy 12/06 - low-grade low volume grade group 1 - Left base lateral , 3+3 = 6 40% - Left mid lateral - , 3+3 = 6 20% - Left apex lateral - , 3+3 = 6 10% - Right mid lateral , 3+3 = 6 5% - 4 cores from 12 - Biopsy October 2020 low-grade low volume grade group 1 Histologic type: Adenocarcinoma Histologic grade: Shayla score:3+3=6 Tumor quantitation:? Number cores positive:5 Total number of cores:12 - left base, left mid % of tissue involved: Approximately 5-10% - - no core greater than 50% Periprostatic fat inv.: Not identified Seminal vesicle inv.: Not identified, Perineural inv.: Present, LVI: Not identified TNM Classification of Malignant Tumours (TNM) T1c. The D'Yanni (NCCN) risk category is Low Risk (PSA< 10, Gl < 7, T1c) - Group 1. Recent labs included 04/09 PSA 3.4 08/07 3.1, 10/08 3.3, 08/09 3.9, 04/12 4.3 PFSH Medical History Prostate cancer Tobacco dependence Pulmonary nodule Family History Other HTN (hypertension) Social History Patient Tobacco Use Status: Current everyday Tobacco user Tobacco use type: Cigarette Cigarette Packs Per Day: 0.5 Cigarettes Per Day: 10.0 Years Smoked: 20 Review of Systems Const Denies chills and Denies fever(s) Card Reports no additional complaints and Denies syncope Resp Denies cough GI Denies abdominal pain and Denies heartburn Reports as per HPI and Denies change in libido Neuro Denies syncope Psych Denies change in libido Endo Denies change in libido Physical Exam Const General: cooperative, healthy appearing, comfortable and no acute distress Orientation/consciousness: patient oriented x3 HEENT Face and sinus: Yes normal facial exam Mouth: moist mucous membranes Neck Neck: Yes normal visual inspection, Yes full ROM and Yes trachea midline Chest Chest palpation & inspection: normal inspection of the chest Resp Effort & Inspection: normal respiratory effort, able to speak in complete sentences and no respiratory distress GI Inspection: Yes normal to inspection Back/Spine/Pelvis Cervical Spine: normal cervical lordosis Thoracic/Lumbar Spine: thoracic and lumbar spine normal to inspection Skin General skin exam: no rashes or lesions noted Neuro General: patient oriented x3, gait normal, tone normal and moves all extremities Extrem General: Yes normal to inspection and Yes capillary refill normal Assessment & Plan Assessment & Plan (1) Prostate cancer: Comment: Low-grade low volume last biopsy 2020 Code(s): C61 - Malignant neoplasm of prostate Category: Medical (2) Erectile dysfunction associated with type 2 diabetes mellitus: Code(s): E11.69 - Type 2 diabetes mellitus with other specified complication; N52.1 - Erectile dysfunction due to diseases classified elsewhere Category: Medical Plan 4 month follow-up repeat labs Orders: Orders Prostate Specific Antigen 4 Months C61 - Malignant neoplasm of prostate Testosterone, Total 4 Months C61 - Malignant neoplasm of prostate Medications: New tadalafil [id number] [facility] [place] [id number] Member [id number] 5 mg PO DAILY 90 tabs 0RF sexual activity 90 days - Type 2 diabetes mellitus with other specified complication, N52.1 - Erectile dysfunction due to diseases classified elsewhere tadalafil [id number] [facility] [place] [id number] Member [id number] 20 mg PO 1XD PRN 30 tabs 1RF sexual activity 30 days 69 - Type 2 diabetes mellitus with other specified complication, N52.1 - Erectile dysfunction due to diseases classified elsewhere Patient Instructions: This note is constructed using voice recognition software. While every effort has been made to ensure accuracy transportation officer errors may have been included. Imaging studies, laboratory and physical exam results were discussed and reviewed in detail. No major barriers to patient understanding were identified. An opportunity to ask questions regarding the treatment plan was provided. All questions were answered. The patient expressed understanding and agreement with the above treatment plan. The patient is aware they should contact our office by phone for worsening of their current condition or the appearance of new urologic symptoms. Compliance is encouraged with any medications and followup testing that is ordered. It is a privilege to participate in the urologic care of your patient. If you have any questions or concerns regarding treatment for the above conditions, or other urologic issues, please do not hesitate to contact me. The office telephone contact is [phone]. Sincerely, Dr Lisandro Arcos MD, FR[facility] - Urology Compassionate Specialist Care for the Genitourinary System Coding Level of Care Code Est Pt Level 3 (17683) Complex EM visit Add On G2211 Diagnoses Prostate cancer C61 Erectile dysfunction associated with type 2 diabetes mellitus E11.69; N52.1
== END 2024-10-02 13:48 | disposition home or self-care (01) ==
LOC: HO.HUSH 12:22
PROVIDERS: PCP Internal Medicine; Visit Provider Urology
DX: C61 Malignant neoplasm of prostate (principal); E11.69 Type 2 diabetes mellitus with other specified complication; N52.1 Erectile dysfunction due to diseases classified elsewhere
CPT/HCPCS: 99213

== ENCOUNTER 2024-12-10 08:16 | Outpatient (REF) | payer BC, SELFPAY ==
--- OUTSIDE RECORDS SUMMARY | 2023-11-21 10:38 | XMS_ITS | Encounter Summary ---
Author Organization [facility] Address [address] [place] [address] Care Team Providers Care Manager Of Financial Name Role Phone Jony Samano MD Primary Care Provider [phone] Encounter Details Date Type Department Care Team (Late st Contact Info) Description 11/21/2023 10:38 AM EDT Hospital Encounter TH HISTORIC ENCOUNTERS EASTERN CONVERSION ONLY Dina Negrete MD [address] [place] [phone] Social History Tobacco Use Types Packs/Day Years Used Date Smoking Tobacco: Every Day Cigarettes Smokeless Tobacco: Never Alcohol Use Standard Drinks/Week Comments Yes 6 (1 standard drink = 0.6 oz pur e alcohol) Sex and Gender Information Value Date Recorded Sex Assigned at Not on file Legal Sex Male 8:03 AM EST Gender Identity Not on file Sexual Orientation Not on file documented as of this encounter Last Filed Vital Signs Vital Sign Reading Time Taken Comments Blood Pressure 135/80 11/21/2023 10:50 AM EDT Sitting Left arm Pulse 76 11/21/2023 10:50 AM EDT Temperature - - Respiratory Rate - - Oxygen Saturation - - Inhaled Oxygen Concentration - - Weight 79.9 kg (176 lb 3.2 oz) 11/21/2023 10:50 AM EDT Height 170.2 cm (5' 7 ) 11/21/2023 10:5 0 AM EDT Body Mass Index 27.6 11/21/2023 10:50 AM EDT documented in this encounter Progress Notes * Dina Negrete MD - 11/21/2023 10:[address] Samano, Thank you very much for referring this patient for consultation. HPI: 63-year-old man, who is referred for medical oncology evaluation regarding recent diagnosis of progressive prostate cancer. Patient reports that he is feeling well. He is quite active, although less than prior, and involvedin taking care of his 6-year-old son. He had a diagnosis of prostate cancer since 2018, and has been following with urologist Dr. Metzger. His initial PSA at diagnosis was at 6.4. Since then PSA gradually fluctuated between 3.1 in -5.6 in January 2023. Prior to that in July 2022 he underwent anMRI that showed 20 g prostate, left apex lateral 1.5 cm by IR RADS 5 lesion. His prior prostate biopsies are reviewed. In November 2018, he underwent a biopsy that demonstrated low-grade low-volume grade group 1 disease, Shayla 6= 3+3. 2 years later he had a biopsy in October 2020, that also demonstrated low- grade low-volume grade group 1 disease adenocarcinoma King[place] 3+3 equal 6, at that time 5 cores out of 12 were positive. Heunderwent the latest biopsy in April 2023, and underwent more extensive testing. At that time Results and indicated some localized disease progression, Shayla 3+4 equal 7, grade group 2 in 1 area, and 3 out of 16 cores were positive for disease. He had specific for Prolaris molecular skull testing that showed 4.7, and the disease specific mortality was predicted to be at 4.3% over the next 10 years. Risk of metastasis 2.8% with single modal treatment. He falls under the favorable intermediate group and single modal treatment such as radical prostatectomy was recommended. Patient is quite concerned about the potential side effects and requested a second opinion evaluationand was referred to medical oncology His other treatment at this time include finasteride. Despite this his PSA had increased to 7 Patient feels that he has frequency of urination. He is worried about side effects from surgery/radiation, these are reviewed in detail. Surgery could result in immediate complications such as incontinence. At this time he does have frequency of micturition may be related to prostatic hyperplasia. Radiation can result in cystitis, UTIs burning micturition, colitis, diarrhea, and later complications such as urethral stricture requiring dilatation etc. Patient is keen to avoid side effects. He realizes that by delaying treatment, there is a risk of small but significant, risk of disease progression to involve other areas of the prostate, lymph nodes, skeletal system etc. As long as he has localized limited disease, it could be cured. However if he develops skeletal mets stasis thereafter disease can only be controlled, not cured, these were discussed in detail with him. Past medical history essential hypertension, diabetes mellitus, BPH, prostate cancer, hyperlipidemia, Left upper lobe lung nodule Past surgical history Prostate biopsy x 3, colonoscopy, colon polyp Family history-prostate cancer in his father who had the disease for approximately 7 years and at 82 Brother with colon cancer sisters are healthy Social history-Works as a [employer], [employer]. Current smoker, quarter pack a day and occasional social alcohol use. Cancer Staging Malignant neoplasm of prostate (HCC) Staging form: Prostate, AJCC 8th Edition - Clinical stage from 05/06/2023: Stage IIB (cT1c, cN0, cM0, PSA: 7, Grade Group: 2) - Signed by Dina Leavitt MD on 11/21/2023 Staging comments: T1 cN0 M0, stage IIb grade group 2, favorable intermediate group per NCCN guidelines, appropriate management at this time includes active surveillance versus treatment with surgery or radiation. Patient preference and concern for side effects reviewed, after discussion recommend that he continues with his preferred model of active surveillance for now, if PSA increases or if next biopsy shows progressive disease or if imaging demonstrates lymphadenopathy, would need to consider active treatment. He prefers to avoid immediate side effects, therefore radiation with androgen deprivation may be his preferred option. ROS: GENERAL: No malaise, significant weight loss or fever NECK: No lumps, goiter, pain or significant neck swelling RESPIRATORY: No cough, wheezing or shortness of breath CARDIOVASCULAR: No chest pain, leg swelling or palpitations GI: No abdominal discomfort, blood in stools or black stools MUSCULOSKELETAL: No joint pain or swelling, back pain, or muscle pain. HEMATOLOGY/LYMPHOLOGY No prolonged bleeding, easy bruisability or swollen nodes Other Systems review is non contributory PAST MEDICAL HISTORY: Active Ambulatory Problems Diagnosis Date Noted ??? Malignant neoplasm of prostate (HCC) 11/21/2023 Resolved Ambulatory Problems Diagnosis Date Noted ??? No Resolved Ambulatory Problems Past Medical History: Diagnosis Date ??? Diabetes mellitus (HCC) ??? Hypertension PAST SURGICAL HISTORY: History reviewed. No pertinent surgical history. SOCIAL HISTORY: Social History Tobacco Use ??? Smoking status: Every Day Packs/day: .25 Types: Cigarettes ??? Smokeless tobacco: Never Substance Use Topics ??? Alcohol use: Yes Alcohol/week: 6.0 standard drinks of alcohol Types: 6 Cans of beer per week FAMILY HISTORY: Family History Problem Relation Age of Onset ??? Cancer Brother colon MEDICATIONS: Current Outpatient Medications: ??? finasteride (PROSCAR) 5 MG tablet, Take 1 tablet (5 mg total) by mouth daily., Disp: , Rfl: ??? lisinopril (PRINIVIL,ZESTRIL) tablet 30 mg, Take 1 tablet (30 mg total) by mouth daily. for 30 days, Disp: , Rfl: ??? metFORMIN (GLUCOPHAGE-XR) ER 24 hr tablet 500 mg, TAKE 2 TABLETS BY MOUTH EVERY MORNING THEN TAKE 2 TABLETS EVERY EVENING, Disp: , Rfl: ??? Ozempic, 0.25 or 0.5 MG/DOSE, 2 MG/3ML SOPN, INJECT 0.25 MG SUBCUTANEOUSLY ONCE WEEKLY DIRECTED, Disp: , Rfl: ??? rosuvastatin (CRESTOR) tablet 20 mg, Take 1 tablet (20 mg total) by mouth daily. for 30 days, Disp: , Rfl: You are allergic to the following Date Reviewed: 11/21/2023 No active allergies PHYSICAL EXAM: BP 135/80 (BP Location: Left arm) Pulse 76 Temp 98.4 ??F (36.9 ??C) (Temporal) Ht 5' 7 (1.702 m) Wt 79.9 kg (176 lb 3.2 oz) SpO2 99% BMI 27.60 kg/m?? APPEARANCE: Alert and in no acute distress Looks well but anxious EYES: PERRL, conjunctiva pink and sclera are Normal without icterus ORAL CAVITY: No erythema or exudates NECK: Neck supple, no adenopathy, HEART: RRR with normal S1 and S2, no murmurs, no gallops, no JVD appreciated LUNG: clear to auscultation bilaterally Percussion note normal LYMPH NODES: No palpable superficial adenopathy ABDOMEN: Bowel sounds normoactive, no bruits, soft, non-tender, without organomegaly or palpable masses EXTREMITIES: Extremities warm and well perfused without clubbing, cyanosis, rash or edema NEURO: Oriented X 3, no focal weakness; sensation is normal LABS: No results found for: WBC , HGB , HCT , MCV , PLT No results found for: NA , K , CO2 , CL , BUN , GLU Testing: Review of Lab results , interpreted Detail review of lab work, from PCP office, and PSA levels from urology, and detailed review of prostate biopsy 2018, 2020, 2023 Review of Imaging, interpreted Recommend CT abdomen/pelvis and bone scan prior to any intervention. Patient is not keen on any intervention at this point Review of External Documentation Notes from PCP, notes from urology Tests ordered -continue monitoring PSA at urology office periodically at 4 to 6- month interval Recommend another biopsy at 12 to 18 months if patient is not going ahead with surgery at this time ASSESSMENT SNOMED CT(R) 1. Malignant neoplasm of prostate (HCC) MALIGNANT TUMOR OF PROSTATE PLAN: 63-year-old gentleman, with gradually progressive localized prostate cancer, latest biopsy indicating Shayla 7 disease, favorable intermediate group. This is cT1c N0 disease and due to increase in PSA qualifies as a stage II disease. Detailed discussion with the patient regarding the disease diagnosis, risk of progression, involvement of lymph nodes, skeletal system, and treatment options that would be available at age stage. At 63 years, given his actuarial life expectancy greater than 15 years, standard recommendation would be to consider radical prostatectomy versus continue active surveillance. However in the next 3 to 4 years his disease may progress to unfavorable intermediate group and at that time he would need to make a decision regarding surgery versus curative intent radiationtherapy with androgen deprivation. Side effects of surgery versus radiation were reviewed in detailwith the patient. At this time he is not keen to pursue either. In that case I have advised him to continue active surveillance which is also a reasonable option, but with PSA levels at 3 to 4- month interval, and further biopsy at 12 to 18 months. He will follow closely with his PCP and surgeon bria to this clinic in July of next year. Prior to any intervention I would also recommend obtaining bone scan and CT scan of the abdomen/pelvis. Return to clinic as planned. Total time today, review of clinical information, examination, counseling, care coordination-greater than 60 minutes. Dina Leavitt MD Cc: Jony Samano MD documented in this encounter Plan of Treatment Not on file documented as of this encounter Visit Diagnoses Not on filedocumented in this encounter Care Teams Manager Of Financial Relationship Specialty Start Date End Date Jony Samano MD [address] [place] [address] PCP - General 11/11/23 documented as of this encounter
--- OUTSIDE RECORDS SUMMARY | 2024-12-10 08:35 | XMS_ITS | Clinical Summary ---
Author Organization [facility] Address [address] [place] [address] Care Team Providers Care Streetcar Motorman Name Role Phone Jony Samano MD Primary Care Provider [phone] Allergies No known active allergies Medications Medication [...] age to complete this topic Care Teams Streetcar Motorman Relationship Specialty Start Date End Date Jony Samano MD [address] [address] PCP - General Internal Medicine 11/11/23
--- OUTSIDE RECORDS SUMMARY | 2024-12-10 08:35 | XMS_ITS | Continuity of Care Document ---
Author Organization [facility] [address] [place] [address] Phone [phone] Social History Type Date Description Comments Sex Male Sex Unknown Medical Devices Description No Information Available Encounters Description No Information Available Assessments Description No Information Available Plan of Treatment No Information Available Functional Status Description No Information Available Mental Status Description No Information Available Referrals Description No Information Available
--- OUTSIDE RECORDS SUMMARY | 2024-12-10 08:35 | XMS_ITS | Clinical Summary ---
Author Organization [facility] Address [address] [place] [address] Phone Care Team Providers Care Truck Repair Supervisor Name Role Phone Jony Samano MD Primary Care Provider [phone] Medical History Medical History Date Comments Diabetes [...] 2) 02/12/2012 Cholesterol Screening (Lipid Panel) 01/21/2022 HIV Screening 01/21/2022 Hepatitis C Screening 01/21/2022 Social Influencers of Health Screening 01/21/2022 Depression Screening 02/19/2024 COVID-19 Vaccine (1 - 2023-2 5 season) 2024 Influenza Vaccine (#1) 2024 Colorectal Cancer Screening: Colonoscopy 10/21/2034 10/21/2024 RSV Immunization Adult Patie nts (1 - [...] on patient's age to complete this topic Procedures Procedure Name Priority Date/Time Associated Diagnosis Comments EXTERNAL COLONOSCOPY REPORT Routine 10/21/2024 9:10 AM EDT from Last 3 Months Results * External Colonoscopy Report (10/21/2024 9:10 AM EDT) Anatomical Region Laterality Modality Endoscopy Historical Provider GI~PROCEDURE ORDERABLES F inal Result from Last 3 Months Insurance [facility] Care Teams Truck Repair Supervisor Relationship Specialty Start Date End Date Jony Samano MD [address] [place] [id number] PCP - General 11/11/23
[2024-12-10 10:33] LABS: Prostate Specific Antigen < 0.10 ng/mL (<0.05-4.0)
== END 2024-12-10 08:17 | disposition home or self-care (01) ==
LOC: HO.10HDL 08:16
PROVIDERS: Visit Provider Urology
DX: C61 Malignant neoplasm of prostate (principal); Z12.5 Encounter for screening for malignant neoplasm of prostate
CPT/HCPCS: 36415; 84153; 84403

== ENCOUNTER 2025-01-01 10:31 | Outpatient (AMB) | payer BC, SELFPAY ==
--- NOTE | 2025-01-01 10:31 | MHC.OFFVIS ---
Intake Visit Reasons: 4m/labs Intake Note: Patient is present for Lab results Urology Med: Finasteride, Tadalafil Antibiotic Allergy: None Blood Thinner: None 12/10/2024 PSA- <0.10 Total Testo- 9 Allergies No Known Allergies Allergy (Verified 10/02/24 12:52) HPI Comments Details: Andrea PARKER is a very pleasant male. He is a patient of Dr Samano. He is seen for the following urologic conditions. - prostate cancer - Dr Rose radiation oncology - erectile dysfunction secondary to diabetes Telemedicine Evaluation 15 min Consultation [employer] Johanne Video 01/12 Doing well Discussed lab work Current symptoms primarily urgency Does not rise to the level of bother for medications Six-month follow-up 10/12 Final GnRH Finished external beam radiation 09/11 Restaging PET-CT shows localized activity within left prostate Restaging prostate MRI - broad-based abutment of lesion on prostate capsule slight indistinct margin which raises concern for capsular invasion however no clear evidence. No evidence of adenopathy or seminal vesicle invasion. Prolaris reviewed - molecular score 4.7 - risk location upper end of favorable intermediate Threshold percentage 4.3 versus threshold 3.2 PSA 03/14 7.6 Balanitis 04/12 betamethasone Erectile Dysfunction Secondary to diabetes Daily Cialis 10mg Prostate cancer: Low risk November 2018, October 2020, April 2023 grade group 2 External beam radiation with short term hormones completed 09/11 Prostate cancer was diagnosed Dr Arcos 12/06. Diagnosis was reached by needle biopsy, for elevated PSA, PSA at diagnosis 6.4, , size at TRUS 40 cc. PT1c PSA 03/10 3.1, 04/12 4.3, 02/09 5.6, 10/11 7.0 finasteride 05/11 low-grade, low volume Histologic grade: Shayla score: 3+4=7 (E 2.5) 3+3=6 (d 3.0, d 2.5) % of pattern 4: 10% of the tumor Tumor quantitation: Number cores positive: 3 Total number of cores: 16 % of tissue involved: 10% of all tissue examined Periprostatic fat inv.: Not identified Seminal vesicle inv.: Not identified Perineural inv.: Present 08/10 MRI - 20 g prostate, left apex lateral 1.5 cm, PI-RADS 5 Biopsy 12/06 - low-grade low volume grade group 1 - Left base lateral , 3+3 = 6 40% - Left mid lateral - , 3+3 = 6 20% - Left apex lateral - , 3+3 = 6 10% - Right mid lateral , 3+3 = 6 5% - 4 cores from 12 - Biopsy October 2020 low-grade low volume grade group 1 Histologic type: Adenocarcinoma Histologic grade: Shayla score:3+3=6 Tumor quantitation:? Number cores positive:5 Total number of cores:12 - left base, left mid % of tissue involved: Approximately 5-10% - - no core greater than 50% Periprostatic fat inv.: Not identified Seminal vesicle inv.: Not identified, Perineural inv.: Present, LVI: Not identified TNM Classification of Malignant Tumours (TNM) T1c. The D'Yanni (NCCN) risk category is Low Risk (PSA< 10, Gl < 7, T1c) - Group 1. Recent labs included 04/09 PSA 3.4 08/07 3.1, 10/08 3.3, 08/09 3.9, 04/12 4.3 PFSH Medical History Prostate cancer Tobacco dependence Pulmonary nodule Family History Other HTN (hypertension) Social History Patient Tobacco Use Status: Current everyday Tobacco user Tobacco use type: Cigarette Cigarette Packs Per Day: 0.5 Cigarettes Per Day: 10.0 Years Smoked: 20 Review of Systems Const All systems reviewed & are unremarkable except as noted in HPI and below Reports no additional complaints Resp Reports no additional complaints GI Reports no additional complaints Reports as per HPI Musc Reports no additional complaints Physical Exam Telemedicine evaluation Appropriate responses Regular breathing rate and rhythm HEENT Head: Yes normal to inspection Ears: hearing grossly normal bilaterally Eyes General: appearance normal, both eyes and all related structures Neck Neck: Yes normal visual inspection Chest Chest palpation & inspection: normal inspection of the chest Resp Effort & Inspection: normal respiratory effort and able to speak in complete sentences Telehealth Telehealth Telehealth [facility]: [facility] Location of provider rendering services: practice address Location of patient: address on file Patient Identification confirmed using: Name, : Yes Telehealth method: voice only Patient verbally consented to treatment: Yes Patient verbally consented to billing insurance company: Yes Patient informed of any privacy concerns related to visit: Yes Minutes spent on Phone/Video with Pt.: 15 Assessment & Plan Assessment & Plan (1) Prostate cancer: Comment: Low-grade low volume last biopsy 2020 Code(s): C61 - Malignant neoplasm of prostate Category: Medical Plan Six-month follow-up lab work Orders: Orders Testosterone, Total 6 Months C61 - Malignant neoplasm of prostate Prostate Specific Antigen 6 Months C61 - Malignant neoplasm of prostate Patient Instructions: This note is constructed using voice recognition software. While every effort has been made to ensure accuracy inspector process errors may have been included. Imaging studies, laboratory and physical exam results were discussed and reviewed in detail. No major barriers to patient understanding were identified. An opportunity to ask questions regarding the treatment plan was provided. All questions were answered. The patient expressed understanding and agreement with the above treatment plan. The patient is aware they should contact our office by phone for worsening of their current condition or the appearance of new urologic symptoms. Compliance is encouraged with any medications and followup testing that is ordered. It is a privilege to participate in the urologic care of your patient. If you have any questions or concerns regarding treatment for the above conditions, or other urologic issues, please do not hesitate to contact me. The office telephone contact is [phone]. Sincerely, Dr Lisandro Arcos MD, [facility] - Urology Compassionate Specialist Care for the Genitourinary System Coding Level of Care Code Tele Est Pt Level 3 (90385) Complex EM visit Add On G2211 Diagnoses Prostate cancer C61
== END 2025-01-01 12:48 | disposition home or self-care (01) ==
LOC: HO.HUSH 10:31
PROVIDERS: PCP Internal Medicine; Visit Provider Urology
DX: C61 Malignant neoplasm of prostate (principal)
CPT/HCPCS: 99213